=== PATIENT | female | born 1950 | race Caucasian/White ===

== ENCOUNTER 2025-11-21 15:28 | Emergency (ER) | payer MEDICARE, SELFPAY ==
--- OUTSIDE RECORDS SUMMARY | 2025-11-10 05:50 | XMS_ITS | Continuity of Care Document ---
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 Trimmer Name Role Phone Naheed Thompson DO Primary Care Provider [phone] Phill Nuñez PA-C Emergency Provider [phone] Trae Vela MD Admit Provider Karthikeyan Langley DO Other Provider Nakul Marin MD Other Provider Kwabena Osei DO Other Provider Sae Jaramillo MD Attending Provider Naheed Thompson DO Attending Provider Self, Referral Attending Provider Unavailable Ariadna Gonzalez MD Attending Provider Naheed Zaman DO Referring Provider Care Teams Patient Care Team Team Status: Active Member Role/Relationship Status Dates Naheed Thompson DO Primary Care Provider Active Visit Care Team Team Status: Inactive Member Role/Relationship Status Dates Naheed Thompson DO Primary Care Provider Active Start: August 14, 2025 End: August 17Antonio Tate ProviderActiveStart: August 14, 2025 End: August 17, 2025MushtGissell Ramirez ProviderActiveStart: August 14, 2025 End: August 17, 2025Karthikeyan Langley DOOther ProviderActiveStart: August 14, 2025 End: August 17jodi Marin MDOther ProviderActiveStart: August 14, 2025 End: August 17, 2025Kwabena Osei DOOther ProviderActiveStart: August 14, 2025 End: August 17, 2025Firchuyita Jaramillo , MDAttending ProviderActiveStart: August 14, 2025 End: August 17, 2025 Visit Care Team Team Status: Inactive Member Role/Relationship Status Dates Naheed E Schwerer , DO Primary Care Provider Active Start: August 23, 2025 End: August 23, 2025Kaitlin E Schwerer , DOAttending ProviderActiveStart: August 23, 2025 End: August 23, 2025 Visit Care Team Team Status: Inactive Member Role/Relationship Status Dates Naheed E Schwerer , DO Primary Care Provider Active Start: August 30, 2025 End: August 30, 2025Kaitlin E Schwerer , DOAttending ProviderActiveStart: August 30, 2025 End: August 30, 2025 Visit Care Team Team Status: Inactive Member Role/Relationship Status Dates Naheed E Schwerer , DO Primary Care Provider Active Start: September 16, 2025 End: September 16, 2025Kaitlin E Schwerer , DOAttending ProviderActiveStart: September 16, 2025 End: September 16, 2025 Visit Care Team Team Status: Inactive Member Role/Relationship Status Dates Naheed E Schwerer , DO Primary Care Provider Active Start: September 16, 2025 End: September 16, 2025Referral SelfAttending ProviderActiveStart: September 16, 2025 End: September 16, 2025 Visit Care Team Team Status: Inactive Member Role/Relationship Status Dates Naheed E Schwerer , DO Primary Care Provider Active Start: September 29, 2025 End: September 29, 2025Kaitlin E Schwerer , DOAttending ProviderActiveStart: September 29, 2025 End: September 29, 2025 Visit Care Team Team Status: Inactive Member Role/Relationship Status Dates Naheed E Schwerer , DO Primary Care Provider Active Start: September 30, 2025 End: September 30, 2025Kaitlin E Schwerer , DOAttending ProviderActiveStart: September 30, 2025 End: September 30, 2025 Patient Care Team Team Status: Inactive Member Role/Relationship Status Dates Naheed Thompson DO Primary Care Provider Active Start: November 10, 2025 End: November 10, 2025d Grant Gonzalez MDAttending ProviderActiveStart: November 10, 2025 End: November 10, 2025 Visit Care Team Team Status: Active Member Role/Relationship Status Dates Naheed Thompson DO Primary Care Provider Active Start: November 10, 2025 Naheed Thompson - S , DOReferring ProviderActiveStart: November 10, 2025 Mhd Grant Gonzalez MDAttkatlyn ProviderActiveStart: November 10, 2025 Chief Complaint and Reason for Visit Chief Complaint Admit Date Abd Pain August 14, 2025 4:18pm 1 week f/u August 30, 2025 10 :28am Cough September 16, 2025 9 :11am Screening September 16, 2025 3 :21pm left sided pain September 29, 2025 9 :53am r10.32 September 30, 2025 2 :44pm Follow Up 6 Months November 10, 2025 9:50am Iron Deficiency Anemia November 10 9:51am Reason for Visit Admit Date COPD (chronic obstructive pulmonary dise ase) August 14, 2025 4:18pm Generalized anxiety disorder July 262024 4:18pm History of radiation exposure August 14, 2025 4:18pm Myocardial infarction August 14 4:18pm Obstructive sleep apnea August 14, 2025 4:18pm Complete obstruction of small intestine August 14, 2025 4:18pm Leukocytosis August 14, 2025 4:18pm Small bowel obstruction August 14, 2025 4:18pm Cough August 23, 2025 9:48am Diabetes August 23, 2025 9:48am Small bowel obstruction August 23, 2025 9:48am Cough August 30, 2025 10 :28am Diarrhea August 30, 2025 10 :28am Insomnia August 30, 2025 10 :28am Bronchitis September 16, 2025 9 :11am Bronchitis September 29, 2025 9 :53am Left lower quadrant abdominal pain Novem 2024 9:53am Duodenitis November 10, 2025 9:50am Iron deficiency anemia November 10 9:50am Rectal cancer November 10, 2025 9:50am Leukocytosis November 10, 2025 9:50am Iron deficiency anemia November 10 9:51am Rectal cancer November 10, 2025 9:51am GERD (gastroesophageal reflux disease) D ecember 2024 9:51am Leukocytosis November 10, 2025 9:51am Reason for Referral Type Reason(s) Provider Provider Contact Information Marcio baires Address Start Date Nakul Coulter MDWork Phone: [phone] [facility] [address] [facility] [address]Ov[place] have been scheduled for a follow up appointment for the following date and time, please call to reschedule if needed.Alden Cerda Phone: [phone] [facility] [address] Health Concerns Concerns Start Date A [facility] screening has identified you as FRAIL or AT RISK FOR FRAILTY. This puts you at a higher risk for infection, illness, falls, and other injuries. Here are four ways to help you reduce your risk of frailty: 1. IDENTIFY EARLY SIGNS OF FRAILTY ??? Discuss contributing factors and concerns with your doctor 2. BE ACTIVE ??? Walking and light strengthening exercises will help reduce weakness 3. EAT WELL ??? Aim for three healthy meals a day that are high in protein 4. THINK POSITIVE ??? Keep your mind active by being sociable and continuing to learn References: Stay Strong: Four Ways to Beat the Frailty Risk [email or web address]-bqheig-jkzf- tnet-mi-isow-the-fra ilty-risk Allergies, Adverse Reactions, Alerts Allergen Type Severity Reaction Last Updated Verified Status moxifloxacin Allergy Unknown Anaphylaxis November 10, 2025 10: 08am Yes Active Social History Smoking Status Status Start Date End Date Date of Observa tion Smokes tobacco daily (finding) August 15, 2025 9:13am Observation Status Observation Response Date of Response Legal Sex Female (finding) Sex Assigned At BirthFemaleMay 1949 Family History Relationship Condition Age at Onset Recorded Date/T giovanna mother Malignant neoplasm of cervix Unknown Malignant neoplasmUnknownHistory of malignant neoplasm of cervixUnknownDeceased UnknownfatherAccidental in industrial placeUnknownDeceasedUnknownsister Malignant neoplasm of pancreasUnknownbrotherCardiovascular diseaseUnknown Diabetes mellitusUnknownsisterMalignant neoplasm of cervixUnknown Problems Active Problems Problem Diagnosis/Recorded Date Onset Date Status C omments Right lower quadrant pain July 12, 2024 12:38pm Unknow n Active Left lower quadrant abdominal painNovember 2024 10:31amUnknownActive Medicare annual wellness visit, subsequentcember 2023 1:36pmUnknown ActiveMild major depressionMarch 2023 10:47amUnknownActiveInsomniaJanuary 2017 8:52amUnknownActiveInsomniaMarch 2023 10:47amUnknownActive Obstructive sleep apneaMay 2022 11:58amUnknownActiveGeneralized anxiety disorderMarch 2023 10:47amUnknownActiveEssential tremorDecember 2023 11:19amUnknownActiveSacroiliitisSeptember 2023 8:59amUnknownActiveOSA on CPAPMay 2024 7:08amUnknownActiveACPAP 6-16cm R2NIczrd spondylosis with radiculopathy, lumbar regionMarch 2023 9:54amUnknownActiveRectal cancer October 20, 2023 12:58pmUnknownActiveDiabetesJanuary 2017 8:53amUnknown ActiveChronic painMarch 2023 9:55amUnknownActiveCoughSeptember 2024 9:48amUnknownActiveDiarrheaOctober 2017 5:17pmUnknownActiveHyperglycemia December 03, 2017 8:22amUnknownActiveHistory of open reduction and internal fixation (ORIF) procedureFebruary 2020 1:29pmUnknownActiveleft wristRight leg painSeptember 2023 7:47amUnknownActiveMyocardial infarctionApril 2022 9:12amUnknownActiveOsteopeniaApril 2020 12:27pmUnknownActiveEmphysema lungMay 2022 11:58amUnknownActiveRestless legsSeptember 2023 8:59am UnknownActiveSkin lesionMay 2024 8:09amUnknownActiveDegenerative disc disease, lumbarSeptember 2023 8:59amUnknownActiveWeight lossAugust 2023 12:37pmUnknownActiveEx-smokerApril 2022 9:12amUnknownActiveAnal cancerSeptember 2023 8:59amUnknownActiveIron deficiency anemiaAugust 2022 10:31amUnknownActiveLeft knee painSeptember 2023 7:47amUnknownActive PAF (paroxysmal atrial fibrillation)March 29, 2023 1:02pmUnknownActiveCOPD (chronic obstructive pulmonary disease)October 18, 2019 1:58pmUnknownActive BronchiectasisMay 2022 12:59pmUnknownActiveCOPD exacerbationDecember 2023 1:55pmUnknownActiveThoracic back painMarch 2023 9:55amUnknownActive GERD (gastroesophageal reflux disease)October 18, 2019 1:58pmUnknownActive History of radiation exposureSeptember 2024 8:16amUnknownActive Sacroiliitis, not elsewhere classifiedMarch 2023 8:20amUnknownActive BronchitisOctober 2024 9:05amUnknownActiveHTN (hypertension)December 02, 2017 12:38pmUnknownActiveArthritis of lumbosacral spineSeptember 2023 8:59amUnknownActiveDuodenitisFebruary 2023 11:37amUnknownActive Inactive/Resolved Problems Problem Diagnosis/Recorded Date Onset Date Status C omments Complete obstruction of small intestine August 14, 2025 2:53pm Unknown Resolved LeukocytosisJune 2024 9:11amUnknownResolvedSmall bowel obstruction August 15, 2025 8:16amUnknownResolvedPseudomonas aeruginosa infection October 30, 2021 11:56amUnknownResolved Medications Medication Status Dose Units Route Directions Qty Days Refills S tart Date Stop Date End Date Reason(s) Instructions Adherence Metformin 500 mg tablet Discontinued 0 .ROUTE.XIJDOWB016Splipqxf 2023 9:27amMarch 2023 10:44amTAKE 1 TABLET BY MOUTH DAILYTrazodone 100 mg rolwsqAhydbmpzkddc592RCJCLmvnq at ursmxwf585Ldlsk 2023 1:22pmAugust 2023 8:34amMontelukast 10 mg kuysugTtiunqnxkgjp26 VSTFBtalb367Jtjve 2023 10:52amSeptember 2023 7:31amBuspirone 5 mg kaqqrbKnapgkvjmnkr6LEHALbxsz irlih683MujApril 15, 2024 1:11pmNovember 2023 8:32amGabapentin 300 mg cznkiqlSxwydrcdampu186PYAKAkjrx times clurx8035Qfj 2023 7:25amOctober 2023 12:09pmOmeprazole 20 mg capsule,delayed release(DR/EC)Huvxlsnzcsls57OFBYNciuz cegpp6415FkcApril 20, 2024 7:25amApril 2024 8:16amGERDSertraline 100 mg tabletDiscontinued0.ROUTE.YJIXJQI652Pvrl 2023 10:10amNovember 2023 8:14amTAKE 1 TABLET BY MOUTH ONCE DAILYMetformin 500 mg tabletDiscontinued0.ROUTE.XOUCESH423Rbpi 2023 12:47pmNovember 2023 7:51amTAKE 1 TABLET BY MOUTH DAILYTrazodone 100 mg vuionwDnkmrpkxkusp046XV PODaily at bgmmiqp917Plsmdx 2023 8:34amJanuary 2024 10:28am Montelukast 10 mg oerbqpGasnwmnwrlma56OWHVGitix916Nmkigfaqx 2023 7:31am January 10, 2025 8:39amZolpidem (Ambien) 10 mg kzfvfwRrsxxbzfynup06ENTR Xwrpzup66194Djxftac 2023 9:05amDecember 2023 1:56pmInsomnia Insomnia, unspecifiedGabapentin 300 mg capsuleDiscontinued0.ROUTE.SLRDZLJ1110 September 23, 2024 12:09pmNovember 2023 8:14amTAKE 2 CAPSULES BY MOUTH 3 TIMES DAILYRopinirole 1 mg tabletDiscontinued0.ROUTE.UHTFXWS391Edwnoyqa2023 7:29amNovember 2023 8:14amTAKE 1 TABLET BY MOUTH DAILY 1 TO 3 HOURS BEFORE BEDTIMETrazodone 100 mg eahmeyIhidlekqsbhl875DXNVKkdxp at tftdybc908 December 07, 2024 10:27amJune 2024 10:11amMontelukast 10 mg tablet Vwyypxnguhyz52KEFLUyqla097Itutgisr 2024 8:39amJune 2024 8:17am Zolpidem (Ambien) 10 mg hvcglrSfxzvhfejpal90UHNBXtfoext70144Bompv 2024 3:06pmJuly 2024 1:23pmInsomnia Insomnia, unspecifiedPrimidone 50 mg ygqrwmOjuejhahunfn24ERKHNgglo at jgqsmyb190 February 25, 2025 12:58pmJuly 2024 9:56amOmeprazole 20 mg capsule,delayed release(DR/EC)Ykdavp44OUAIGlamp wploi6183Ultmz 2024 8:15amGERDUnknown Sertraline 100 mg tabletDiscontinued0.ROUTE.AQDGSMP261Sqhik 2024 8:48pm March 22, 2025 7:45amTAKE 1 TABLET BY MOUTH ONCE DAILYTrazodone 100 mg tablet Uvmbxv446PRKVXwgzh at lcemobo735Ibyc2024 10:11amUnknownZolpidem (Ambien) 10 mg brklnzXipqxkxauzdm05EQGONwulqyq65441Axzs 2024 1:23pmOctober 2024 10:05amInsomnia Insomnia, unspecifiedPrimidone 50 mg mcjhxjOiqaotfqcbxr05AJMEJhwnm at onvdyjz698 June 16, 2025 9:56amNove2024 11:00amRopinirole 1 mg tabletActive0 .ROUTE.SFWSQOG760Xcofvgnos 2024 6:30amTAKE 1 TABLET BY MOUTH DAILY 1 TO 3 HOURS BEFORE BEDTIMEUnknownAlbuterol Sulfate 1.25 mg/3 mL Solution For NebulizationDiscontinued1.53OTWDGCINBRIXV6U as needed for Shortness Of Breath Or WheezingNovuary 2017 12:00amN2018 2:16pmMeloxicam 15 mg QmccgaPfjzqdirinpk84FGHUGhsmgLnpfdgh 9th, 2018 12:002018 3:27pm Nitroglycerin (Nitrostat) 0.4 mg Tablet, SublingualDiscontinued0.4MGSUBLINGUAL Q5M as needed for Chest PainNovuary 2017 12:002018 3:26pm Omeprazole 20 mg Capsule,Delayed Release(Dr/Ec)Vunqysbbbtwj43VTFOSwkgrXhaauvs 9th, 2018 12:00amJanuary 2019 3:10pmZolpidem (Ambien) 10 mg Tablet Vuqittkeccap11SDFYDeygmzmIwfnqkx 2017 12:00January 2019 12:18pm Albuterol Sulfate (Proair Hfa) 90 mcg/actuation Hfa Aerosol QhtkvydOzypao9WEM VJVQGRPBPJN7S as needed for WheezingNovuary 2017 12:00amComplies with drug therapyApple Cider Vinegar 500 mg ApfdauSnuwaxfqbbxi481YTHRDmqytDiakfnv 9th, 2018 12:00ept2017 2:50pmTiotropium Savoy (Spiriva With Handihaler) 18 mcg Capsule, W/Inhalation RllavyHppdgiyplpac86ZOLOXGKIBTQOURkslu Maddie 2017 12:00amMarc 2020 4:07pmcopdPotassium Gluconate 595 mg (99 mg) FfvnzmDmegdlgxcybh1HBVVUQqqdq dailyDecember 02, 2017 12:00amSept2017 2:52pmMometasone-Formoterol (Dulera) 200-5 mcg/actuation Hfa Aerosol ZabiumjXtdtbhqojtwh7PDHUWFKAPRRAQZKoxseMjcqlul 9th, 2018 12:00amMarch 2020 4:06pmCOPDMagnesium Citrate 100 mg JpprefTjdiqwuetxeh155HANUYolbrIvyluqr 2017 12:amSeptember 2017 2:52pmCalcium Nns-Pau-U8-Zn-Pulp Grinder Feeder-Sesar (Calcium Citrate Plus) 662-20-680-3.75 nx-fj-ddhb-mg NenyqeTozkregnfafx1QCBUMFdwwv daily December 02, 2017 12:00amSeptember 2017 2:51pmPrednisone 10 mg tablet Ywdytmkfkxdf35MCPZIb Qegeyewz01266Myoqlzs 2017 12:amJanuary 2017 12:January 2017 12:03amadminister with food or milk. Take one tablet twice a day for 4 days then one tablet daily for 4 days then half a tablet daily.Amoxicillin-Pot Clavulanate 875-125 mg ggkhghVkgusnmyilwg1OIHUZJvlfh daily 1470Novuary 2017 12:00amJanuary 2017 12:amJanuary 2017 12:05amMetformin 500 mg gwaxvgFcgapoluvgtu202OQBOEucvs uzexj75096Lkvudbo 2017 12:00amApril 2017 11:00pmApril 2017 11:01pmTramadol 50 mg rnfzngBmfqixtaiwzq45LEVHW3S as needed for jmip8131Deumozz 2017 12:00am December 09, 2017 12:amJanuary 2017 12:03amGabapentin 300 mg capsule Uguukfrhaead110QFTZZbihx times dailyJuly 2017 11:00pmJanuary 2019 3:10pmCarisoprodol (Soma) 350 mg GodvflCpeypehrtorq654MJWOShttw times daily as needed for PainOctober 18, 2019 12:January 2019 1:31pmCitalopram (Celexa) 20 mg DoagbnOaserfshdfkg54GOCXZpfnfSvmqhpjp 25th, 2019 12:00amJanuary 2019 3:10pmDicyclomine 10 mg GlykpbsKxwsnhecoopr82HDNBNtpjn times daily October 18, 2019 12:amJanuary 2019 1:31pmEscitalopram Oxalate 20 mg CfhrrjZcbmjcqruick04CYBRNgokwCottsidp 25th, 2019 12:00amJan2019 3:10pmTizanidine 6 mg GlyinlxDwmcobqgssxv3TTEUWlwizcwNjelnimc 25th, 2019 12:00am December 17, 2019 1:28pmDiclofenac Sodium (Voltaren) 1 % GelDiscontinued October 18, 2019 12:00Jan2019 3:10pmMeclizine 25 mg tablet Mmuhjphogadk53PYQG4-8 TIMES PER DAY as needed for zuiinaqmb064Tuefxuha 25th, 2019 12:00amNsierra [place] 2018 12:00[facility] 2018 12:04amAmlodipine 5 mg cgrzpkMdgphfomceza4UULYVzndx [facility] 2020 1:45pmDecehonor[facility] 2020 5:46pmhtnAspirin 81 mg Tablet,Delayed Release (Dr/Ec)Nbmllfbuhpyy15IKIE [facility] 12:00[facility] 2022 11:41amOn Hold: Resume on 09/07/22. If no signs of bleedingDiclofenac Potassium 50 mg tablet Pynlrkpnmipy19AXFQPixke daily as needed for Painbruary 2020 1:37pm January 10, 2021 1:40pmAtorvastatin 40 mg fuuuuxKopkpahseaso46DECYEizxr [facility] 2020 12:00[facility] 2022 11:42amhypercholesterolemia Metformin 500 mg oaigonRertswgrjzdz275NYSBWpjgm at bedV[facility] 2020 12:00amApril 2020 9:07amdiabetesRopinirole 1 mg eoiznkRovbpyxfovqc0BYIB BedV[facility] 2020 12:00amNovehonorhealth [facility] 2023 7:29amleg crampsCitalopram 40 mg qcpmmdVewyvtrktclq39DHSXAmobn [facility] 2020 12:00amDecehonorhealth [facility] 2020 5:39pmdepressionMagnesium Oxide 400 mg (241.3 mg magnesium) tablet Yidgwzzmyqug527ODUOEmbjc at bedtimeUab [facility] 2020 12:00amJanuary 2023 12:23pmmuscle crampingGabapentin 300 mg tbhsmhbKidjduryxnlr122ULBUCukqy times dailyFebruary 2020 12:00amMarch 2023 9:58amneuropathyOmeprazole 20 mg capsule,delayed release(DR/EC)Hujecjvuqaoo31JQBPPrddi morningFebruary 2020 12:00amMay 2023 6:29amGERDDiclofenac Sodium 75 mg tablet,delayed release (DR/EC)Zyycwrxzwxjn80GGIOYxbvi dailyFebruary 2020 12:00amDecember 2020 5:40pmarthritis painHydrocodone-Acetaminophen 5-325 mg tablet Discontinued0.ROUTE.COMPLEX as needed for dhim1816Poaqgial 2020March 2020 4:06pmStatus post wrist surgery Other specified postprocedural states1 or 2 tabs PO Q4-6 hrs as neededOmeprazole 20 mg capsule,delayed release(DR/EC)Bovcgidzghut80UWUNNyzrm dailyMay 2023 6:27amMay 2023 7:25amGERDLidocaine (Lidocaine Pain Relief) 4 % Adhesive Patch,HqpnixtvnCcwhdhbhjtsf5ADBLDRWXMECHWkcak098Zjyhv 2020 11:00pmDecemb2020 5:41pmBenzocaine (Hurricaine) 20 % Aerosol,QqnczHhygbjqarwgx6RGEVPL MUCOUS MEMThree times daily as needed for Wtbduxahco427Uoiix 2020 11:00pm October 25, 2021 5:39pmSaccharomyces Boulardii (Florastor) 250 mg Capsule Eylyuditwgan154TCGXApkpl daily with vqyns332[place]ibon 2020 11:00pmDecember 2020 5:43pmGuaifenesin (Mucinex) 600 mg Tablet Extended Release 12hrDiscontinued 1200MGPOTwice uglvp494Tvmqm 2020 11:00pmOctober 2021 10:58amMetformin 500 mg UjllicYhgvzitmghvb941SJIDMxtww rdlzn967Jyhzs 2020 11:00pmMarch 2022 2:57pmHydrocodone-Acetaminophen 5-325 mg tabletDiscontinued1 - 2TABPOEvery 6 hours as needed for Mod to rhidnv9785Gnzgd ecember 2020 5:47pm Fracture of rib Fracture of one rib, unspecified side, initial encounter for closed fracture Prednisone 20 mg QctyhnRjqwsgpldhwf13AKIHCdn vaznggqd36Gzfnv 2020 11:00pm October 25, 2021 5:43pmprednisone 20mg po daily x4 days then 10mg po daily for 4 days then stopTrazodone 50 mg kmzrkwFgiqrnryezca522IUQIEhjeb at bedtimeOctober 2021 10:58amMarch 2023 5:50amGuaifenesin (Mucinex) 600 mg tablet extended release 63fdJegkhkcvvohv4988EXJRThjvg daily as needed for Congestion August 25, 2022 10:58amOctober 2021 2:16pmAzithromycin 250 mg Tablet Gqzhodjjhqhc426TGAXA28X9766Irzdfxb 2021 11:00pmMarch 2022 11:42am Oxycodone-Acetaminophen 5-325 mg GnstwpUtfdsxxjchve0WXNSHZ1H as needed for Pain 1070October 2021March 2022 11:43amShortness of breath Shortness of breathMetoprolol Tartrate 50 mg XpxzrcJjklrxmnevog18CCCTQjidv daily 02555Jidfkop 2021 11:00pmMay 2022 1:33pmGuaifenesin (Mucinex) 600 mg tablet extended release 14rtGappmohzcbxe789QBRHEwzsh zdaxm12703Vndawyb 2021 2:16pmMarch 2022 11:44amFerrous Sulfate (Slow Fe) 142 mg (45 mg iron) tablet extended bzxohdrCrghdhxrhwew348UVUMDcync 48 aafhy631Peijlbc 2021 11:00pmMarch 2022 11:43amHydrocodone-Acetaminophen 5-325 mg tablet DiscontinuedApril 2017 11:00pmJuly 2017 12:34pmTiotropium Savoy (Spiriva With Handihaler) 18 mcg capsule, w/inhalation soobvvMwwzbihqphnf907IKU INHALATIONDailyApril 2017 11:00pmJuly 2017 6:00amMometasone- Formoterol (Dulera) 200-5 mcg/actuation HFA aerosol inhalerDiscontinuedApril 2017 11:00pmJuly 2017 12:35pmMetformin 500 mg BndoziZnkblwzqbksm315 MGPOTwice dailyApril 2017 11:00pmJuly 2017 5:59amDiphenhydramine Hcl (Benadryl Allergy) 25 mg YlknxaTfrrberchxyc30WJRHQJIXI 4-6 HOURS as needed for ItchingApril 2017 11:pmOctober 18, 2019 3:27pmVarenicline Tartrate (Chantix) 1 mg EvonogSfzowtcxwvnk3NEXSHywdu dailySeptember 2017 11:00pm October 18, 2019 3:26pmMetformin 1,000 mg xmdvhjOdsfdpvchsix5258TSFFRruhd mftjg614Xwyeqkw 2017 11:pmOctober 18, 2019 3:26pmAmoxicillin-Pot Clavulanate (Augmentin) 875-125 mg klppkhYdfwssmezofd9MSNJHQpbtm vbbew88Agewspq 2017 11:2018 3:26pmAzithromycin 500 mg tablet Gwizdpnqacrl175AFGHGjhev00Uubwxjp 2017 11:2018 3:26pm Meloxicam 15 mg LpwsihErzjcgtjdgxs19TEBCQpchuPrzyety 2019 12:002019 4:12pmRopinirole 5 mg HjnwwpFwnazyczeanz57NQUVHsjoc dailyNovuary 2019 12:2019 2:19pmRopinirole 1 mg tabletDiscontinued1 TABPODailyNovuary 2019 12:002019 3:11pmMeclizine 25 mg amgwdcNswsetwhmdeb5ZCKKAOwwxc times daily as needed for VertigoDecember 17, 2019 12:2019 3:12pmTizanidine 6 mg qwljwzyMqwrpgkjoeqz9UKNEC Twice dailyNovuary 2019 12:002019 3:09pm2 AM & 2 HS Ropinirole 1 mg ihoyydZmbamvybftie8WDYUALwssn dailyJanuary 2019 12:00am December 20, 2019 12:18pmTizanidine 6 mg yocsozpFdwjfmtiustj5XPQIVuoclbgZedpirx 25th, 2020 12:00amNovuary 2019 12:18pmAmlodipine 5 mg TabletDiscontinued5 OWSXAtuok04055Tuowurl 27th, 2020 12:00amFebruary 2020 1:35pmPropranolol 10 mg RsrtywHambelcqvwns01EZKLTucyp times fbrcy42320ZqjtcppDecember 20, 2019 12:00am January 10, 2021 1:38pmDivalproex 250 mg Tablet Extended Release 24 Hr Vviwzaznycrn100PMAIUwwop at kezsdtt66312Rbvjluf 2019 12:00February 2020 1:37pmZolpidem (Ambien) 10 mg YslloyNnwxbpauuobz55ABUSAadfuxy10Zqwexau 2019 12:17pmMarch 2023 10:44amInsomnia Insomnia, unspecifiedAspirin 81 mg tablet,ssdytxuwSjefmclirfcz59PPNWWltaz520 December 20, 2019 12:00amFebruary 2020 1:35pmTrazodone 50 mg tablet Ediduddhlmys34NMZPJqkeo at tcuebvl316Emebkbw 2019 12:00amOctober 2021 10:58amDiclofenac Potassium 50 mg kczktsNcqlqjrocrnm51YKXVLchjx daily as needed for vhfozifz024Gapzfzu 27th, 2020 12:00amFebruary 2020 1:37pm Ymyqjpmziy-Epyukpjfznoyy-Dujb (Fioricet) 50-300-40 mg ihvjbvkXuhhtfysqlto2DMVOK Q8H as needed for tbvpdnns631Kiuikhg 27th, 2020 12:00amFebruary 2020 1:35pmLamotrigine 25 mg SzfokhRoamjkuryyeq94LKJBCwdliDvkynwhk 1st, 2020 12:00am January 10, 2021 1:38pmHydrocodone-Acetaminophen ([place]) 5-325 mg tablet Ssfmhjpmwgdw7FYWJBCOQFJ 4-6 HOURS as needed for wrist izhrdaow9696Iatdtuyl 2019February 2020 1:37pmOxycodone-Acetaminophen 5-325 mg tablet Piedecqacqcs3EAKZUC9V as needed for PainDecember 2020 12:00amOctober 2021 10:57amTiotropium [place]oy (Spiriva Respimat) 2.5 mcg/actuation mist Npmnqsrmkdtz9ENRSTFDVPVWYOUYfbyeOovbpcmt 2nd, 2021 12:00amJune 2024 8:03am Cefepime 2 gram Recon CernEopjojucgbbu0DENNC0W1952Khmieykz 10th, 2021 12:00am August 25, 2022 10:56amMethylprednisolone 4 mg BqzguvOxxdywbwghdi5JWIMNiedr hrevfns25ZwzqauxnNovember 02, 2021 12:00amOctober 2021 10:98ss1mb daily for 3 days then 4mg daily for 3 daysNystatin 100,000 unit/mL SuspensionDiscontinued 110076KQIQAQJzhp times fdvom8673IuqhtkdzNovember 02, 2021 12:00amOctober 2021 10:57amPrednisone 20 mg vbckpnEldvaaqwitxt24GKRXSzbcsMwvef 2022 11:00pm February 28, 2023 12:07pmApixaban (Eliquis) 5 mg dbbejtAgkzvtenooxb2RSPQIsfmo dailyMarch 2022 11:00pmAugust 2022 10:09amMetformin 500 mg tablet Dkudqoagjphp215LPUHOwifdksOhqiq 2022 2:56pmApril 2022 12:04pm Prednisone 10 mg nrqpktHorxiiqsrbxw82GVTYKfnty882Vklcu 2022 11:00pmApril 2022 3:10amTake 4 tablets daily x3 days, 2 tablets daily x3 days, 1 tablet daily x7 days then stopGuaifenesin (Mucinex) 600 mg Tablet Extended Release 12hr Zsunttgofbmb3736ENFVKswxe mcdzm90877Cphko 2022 11:00pmApril 2022 3:10amMetformin 500 mg liznrzHnzotmghnxbt7326NYIKYtooz vvveq652862Kqnfh 2022 12:04pmFebruary 2023 9:27amFluticasone Propion-Salmeterol (Advair Diskus) 250-50 mcg/dose blister with fdckomYbcjxoxfontg5SQWANCAMVTNYVErcit daily 600April 2022 11:00pmAugust 2022 10:09amMetoprolol Succinate 50 mg Tablet Extended Release 24 TmMdahwjaqybrp59TXMILdqan opjsnby998Ahd 2022 11:00pmAugust 2022 10:09amGuaifenesin (Mucinex) 600 mg Tablet Extended Release 03peJpiimlfujgrb027EZURDdhmj nvcdx888Ika 2022 11:00pmJanuary 2023 12:29pmPrednisone 20 mg IbdvdwEtcnibawoghs07FEGKBvmnw Taper: Start: March 28, 2023 12:55pm End: March 31, 2023 12:54pm Frequency: DAILY Days: 1 Hours: 0 Dose: 40 Start: March 31, 2023 12:55pm End: April 03, 2023 12:54pm Frequency: DAILY Days: 3 Hours: 0 Dose: 20 Start: April 03, 2023 12:55pm End: April 10, 2023 12:54pm Frequency: DAILY Days: 7 Hours: 0 Dose: 22289Zpi 2022 11:00pmNovember 2022 11:16amPlease contact the information source for Taper Schedule details.Aspirin 81 mg tablet,chewable Suttnf45PSSRCmmre069Afi 2022 11:00pmComplies with drug therapyCetirizine 10 mg tfgfriRsochxgkaydc05YWOYQziqlHwdbpc 2022 11:00pmNovember 2023 7:53amColestipol 1 gram awhxreKxtsvmgxdyfc1PQEERg DirectedAugust 2022 11:00pmJanuary 2023 12:28pmMetoprolol Succinate 50 mg tablet extended release 24 riEquzhnvsrwpr032EWYNLgbbt eveningAugust 2022 10:09amNovember 2023 7:52amNitroglycerin 0.6 mg Tablet, SublingualActive0.6MGSUBLINGUAL OnceNov2022 12:00amas a single dose; administer 5-10 minutes before situation known to precipitate angina attackComplies with drug therapyMeloxicam 15 mg soedkaJlzysvjqizbv51WOYEAlaoeVummppz 2023 12:00amSeptember 2024 9:57amFexofenadine 180 mg mburdvFzwczdcubqko860KYTPFgnsaKgvwotb 2023 12:00amApril 2023 9:02amMontelukast 10 mg lxlczaZxzfhkhuxbih16UYSIHdcat Maddie 2023 12:00amApril 2023 10:52amSertraline (Zoloft) 50 mg WugunzWriufknlbobc47LPHLZxydlWbdmsvn 2023 12:00amMarch 2023 10:00am Potassium 20 mg Tablet,NpnsvweyTzosvr37LLYQIrpsgCmzrysz 2023 12:00amUnknown Magnesium Glycinate 100 mg GftppuWxpsri057HKUOKztbvDeiozbh 2023 12:00am UnknownSertraline (Zoloft) 50 mg dddflgLhuwchlqohyh506YQGXZrqcgOwjfo 2023 9:59amJune 2023 11:43amSodium Chloride 3 % solution for nebulization DiscontinuedMLINHCLEARWATER VALLEY HOSPITALTIONUniversity [facility]als [facility] 2023 11:00pmSept2024 1:06pm FreeTextSi ml Inhalation Twice a day; Note: Source Status: Taking; Provider: Beto HeidiCpap (Continuous Positive Airway Pressure) unitActive0.RouteApril 2023 11:00pmAs directed DME Medical Servce Comp.Prednisone 20 mg tablet Usoiolmhvlqo22ORMSejyth5689Yjb 2023 11:00pmJune 2023 11:22am Gabapentin 300 mg ouhbkokOwvmrsxargyh272ZYOWDwzni times dailyMay 2023 11:00pmMay 2023 7:25amAcetaminophen-Codeine 300-15 mg tabletDiscontinued1 TABPOEvery 8 hours as needed for xqwq066Kgwuapqmw 19th, 2024 11:00pmSept2023 9:09amLeft knee pain Pain of right lower extremity Pain in left knee Pain in right legTramadol 50 mg vdujifScqskniwnplm59MGMJVmddk 8 hours as needed for epxn548Alzmwkjtt 19th, 2024 11:00pmJune 2024 8:18amLeft knee pain Pain of right lower extremity Pain in left knee Pain in right legBuspirone 5 mg kzqeikWkkzdxzhdcux5ATNJKzcwg times dailyDecember 2023 12:00amApril 2024 10:57amZolpidem (Ambien) 10 mg tablet Tbaqeueqrtkd40JVSBRpcakri76042Dnmtuxgt 2023 1:56pmApril 2024 3:07pm Insomnia Insomnia, unspecifiedPrednisone 20 mg jyjrtlEtgyqbbhbfge45ZBJMiizur8484Ofmsiyga 30th, 2024 12:00amApril 2024 7:44amDoxycycline Hyclate 100 mg capsule Kgwwizigitqg370AVNWMthcd qzahm84018Qbqcrmlj2023 12:00amApril 2024 7:44amSertraline 100 mg cyvdtsUpyuhqnfovjv897ATOGKyenbLunfjxqw 16th, 2024 11:08amApril 2024 8:48pmBuspirone 10 mg hegnbjQrsxdduyhsjz91ZNTKCneps times wjgbo316Mjgkcukv 2023 11:16amDecember 2023 1:28pmPrimidone 50 mg rhhofjYkeuvuurvhtm86OPRVRriwm at lbdugkm879Natjsczj 16th, 2024 12:00amApril 2024 12:58pmSertraline 100 mg jqhvmbSgybsfayrjlq057XPFGEjhphMrsdh 2024 7:44amApril 2024 10:57amBuspirone 10 mg jvbnexFclkto60YSWRTajnu times eueez0921Xepyb 2024 10:56amUnknownSertraline 100 mg abokdhQadyoe242JTAL Ewwhs8081Iweuo 2024 10:30ptBryjateBtrxsxcbonn-Xicbyqlwj-Pivmxwza (Trelegy Ellipta) 100-62.5-25 mcg blister with lkdkxsZbsubqhnccjs9ERDAZLSZYDHQRZ06L52324 May 10, 2025 11:00pmOctober 2024 8:47amBenzonatate 100 mg capsule Zfabxjhbrzva887FIDQ2-6 TIMES PER DAY as needed for andcj443Pxhlwkamw , 2025 11:00pmOctober 2024 8:28amZolpidem (Ambien) 10 mg rrrkalQubbcn08UOVY Juqmxqu87368Wdtvmwm 7th, 2025 10:05amInsomnia Insomnia, unspecifiedUnknownAzithromycin 250 mg rzxdzvTqcfnsqecjof4ZP.wypsy425 August 29, 2025 11:pmSeptember 29, 2025 10:01amFor 250 mg dose pack: take 500 mg (day 1), then 250 mg for 4 days (days 2-5) orally DAILY; Cdvqovsalyxnhnn-Wciwltbiq-Ch (Bromfed Dm) 2-30-10 mg/5 mL hanmoRucopj7TYTNTKPCV 4-6 HOURS as needed for sinus jaujkqpm2063Etmflft2024 11:00pmUnknown Pzajipghmpm-Vtechkuvt-Rizhwbld (Trelegy Ellipta) 100-62.5-25 mcg blister with xkqhrhNesmqh9HLYRLTRBENGCSQ51B10840Bkssbjm 24th, 2025 8:46amUnknownPrednisone 20 mg qeqpccNdhyspppcpfh64BURUjehyg2661Nrgnkqe 23rd, 2025 11:00pmNov2024 10:01amAmoxicillin-Pot Clavulanate 875-125 mg wdpfxwNmlniunmnrlu8ZRGUBZgwiv ljvxu03388Osabkab2024 11:00pmOct2024 9:06amGuaifenesin (Mucinex) 600 mg tablet extended release 75ttPxhmao703AGMOUxvyn wulmz888TakrxugSeptember 15, 2025 11:00pmUnknownAzithromycin 250 mg jxbrnxVrbtujjkqwiv5LY. September 15, 2025 11:00pmSeptember 29, 2025 10:01amFor 250 mg dose pack: take 500 mg (day 1), then 250 mg for 4 days (days 2-5) orally DAILY;Amoxicillin-Pot Clavulanate 875-125 mg niqeewNvbbmm5DOZLZZeeey axqcy93334Tfrhbcxu2024 12:00amUnknownPrimidone 50 mg zghltnNwrmcg64SIYLFerob at mureruz396Psvgmmja2024 10:58amUnknownPromethazine-Codeine 6.25-10 mg/5 mL tmmsqFaclpt2MNKZFfwut 6 hours as needed for xsgvq065888Sehslqcx 2024 12:00amBronchitis Bronchitis, not specified as acute or chronicUnknownPantoprazole 40 mg tablet,delayed release (DR/EC)Qlcgcnlbemxf21DNUBFlpkq155Efhjtzgb 2023 12:00amJune 2023 11:42amGabapentin 100 mg oigjztnSjbztrdzlgvz363KKNEAcetk times dailyUniversity Hospitals St. [facility] 2023 11:00pmMay 2023 6:29amMetformin 500 mg tablet Iltxrnntcrhg799NYMDEgdhx969Mmgoe 2023 10:17amJuly 2023 12:47pm Buspirone 5 mg gccephNmklclgrqgyk3ZQLUZtcer gtwzd495Pxtfr 2023 11:00pmMay 2023 1:11pmZolpidem (Ambien) 10 mg ghypnjOixldbwnyuco26GNPATxxqvqt49426 February 12, 2024 10:39amJune 2023 11:54amInsomnia Insomnia, unspecifiedFerrous Sulfate 325 mg (65 mg iron) xcipqxPegoex482XVSP DailyAtrium Health [facility] 2023 11:00pmUnknownTrazodone 100 mg qhjfcjTxxiamzhgnay874YBVX Daily at bedtimeUniversity Hospitals St. [facility] [address] [facility] 2023 1:22pmFreeTextSig: TAKE 1 TABLET DAILY AT BEDTIME NEEDED; Note: Source Status: Taking; Refills: 3; Qty: 90 Tablet; Provider: Donna Farfan ( )Sertraline (Zoloft) 50 mg wvazdaJqypzrsapmyv46FOWQKsrijLgbj 2023 11:42amJune 2023 11:54amZolpidem (Ambien) 10 mg xursedOtsjzdexdnka62OTTRUgxiato61673Lifm 2023 11:53amOctober 2023 9:06amInsomnia Insomnia, unspecifiedSertraline 100 mg ztamptRgtvejgmmber066ZRNPAtbyk115Ompt 2023 11:53amJuly 2023 10:10amBudesonide 3 mg capsule,delayed,extend.dfpipqtTemrtv1DPBFscslgXokcgniy 2023 12:00amUnknown Atorvastatin 20 mg enczxoBrxjrrjuzczp21XUZVTjcrtFzdjqalw 2023 12:00am August 09, 2025 9:57amMetoprolol Succinate 100 mg tablet extended release 24 qjBdmusw171VGGNlktbnDbuomjxe 2023 12:00amUnknownFexofenadine 180 mg nkusdlTsdrklpeppxs298HHKROxjyfOodwxoge 2023 12:00amJune 2024 8:17am Loperamide 2 mg cstzqecIqwtfk2RINIQlfaxRbzhoxez 2023 12:00amUnknown Gabapentin 300 mg teobzagOqogpg226HZEHEzili times dailyK[facility]ucky [facility] 2023 8:12amUnknownRopinirole 1 mg knyueiRlzkbkcxdstw3DSDM.COMPLEXKentucky River Medical Center 2023 8:13amSept2024 6:30am1 mg orally; 1-3 hours before bedSertraline 100 mg gbxduqZlewuejajbsv311ZXVGMivacRybetgkw 2023 8:13amNoveer 2023 8:32amSertraline 100 mg ukcmrhFownzrugabma053UCPIZfxmgRdmktfvl 2023 8:23am November 08, 2024 11:08amBuspirone 5 mg ozheqeFtwktvlguzyc3HZXMIukkm rtwop937 October 08, 2024 8:32amDecehonorhealth [facility] 2023 11:18amTizanidine 4 mg capsule Obpgbeojkgfj0UTJQDjfu as needed for muscle nmpvmwtglr00681Qntz 10th, 2025 11:00pmSept2024 9:58amPrednisone 20 mg vowcwjBjpuptlilfbw95UMZYKagtn 1049Sept2024 11:00pmSept2024 1:05pmBronchopneumonia Bronchopneumonia, unspecified organismDoxycycline Hyclate 100 mg tablet Hpseajvabeau842QXGGVwkvv fndcn76999Buxyfxrfu 15th, 2025 11:00pmSept2024 1:04pmBronchopneumonia Bronchopneumonia, unspecified organismAlbuterol-Budesonide (Airsupra) 90-80 mcg/actuation HFA aerosol wcjaxlfOjbtnhecfajx7YBDHEEXFUZWJGGvuk times daily as needed for shortness of breath5.90September 2024 11:00pmOctober 2024 8:46amChronic obstructive pulmonary disease Bronchiectasis Emphysema, unspecified Bronchiectasis, uncomplicated Immunizations Immunization Event Date Not Given Reason Dose Number Kitchen Hand Lot Number Reason(s) Given Vaccine Information Statement (VIS) Detail Administration Location COVID-19 mRNA, Comirnaty (XOG) January 25 COVID-19 mRNA, Comirnaty (XOG)February 15OVID- mRNA, Comirnaty (XOG)September 08OVI Comirnaty (XOG) Tri-Sucrose March 06OVI mRNA Bivalent Booster (XOG)August 22, 2022Fluzone TIV High- Dose 65YR+August 26, [id number] [facility] Hospital CtrFluzone QIV High-Dose 65YR+August 26, [id number] County Hospital CtrInfluenza vaccine, quadrivalent, adjuvantedOctober neumococcal Conjugate Vaccine, 13 valentOctober 2016Pneumococcal Conjugate Vaccine, 20 valent November 04, 2022Trivalent Influenza VaccineOctober 2020Trivalent Influenza VaccineSeptember 2021 Medical Equipment Device Date Implanted Date Explanted Device Deta ils Orthopaedic bone wire December 28, 2019 JULITO: ()[id number] Issuing Agency: [employer] Device Id: [id number] bone wireFebruary 2019UDI: ()[id number] Issuing Agency: 1 Device Id: [id number] fixation plate, non-bioabsorbable, sterile December 28, 2019February 2020UDI: ()[id number] Issuing Agency: [employer] Device Id: [id number] bone screw, non-bioabsorbable, non-sterile December 28, 2019February 2020UDI: ()[id number] Issuing Agency: [facility] Device Id: [id number] bone screw, non-bioabsorbable, non-sterile December 28bruary 2020UDI: ()[id number] Issuing Agency: [facility] Device Id: [id number] bone screw, non-bioabsorbable, non-sterile December 28, 2019February 2020UDI: ()[id number] Issuing Agency: [facility] Device Id: [id number] bone screw, non-bioabsorbable, non-sterile December 28, bruary 2020UDI: ()[id number] Issuing Agency: [facility] Device Id: [id number] bone screw, non-bioabsorbable, non-sterile December 28, bruary 2020UDI: ()[id number] Issuing Agency: [facility] Device Id: [id number] bone screw, non-bioabsorbable, non-sterile December 28, 2019February 2020UDI: ()[id number] Issuing Agency: [facility] Device Id: [id number] Procedures Procedure Date Performed Status CT abdomen pelvis w con August 14, 2025 12: 47pm completed XR chest 1V portable August 14, 2025 1:45pm completed XR abdomen 1V August 14, 2025 3:35pm comp leted XR abdomen min 2V August 15, 2025 8:10am co mpleted XR abdomen min 2V August 16, 2025 11:53am c ompleted Blood Culture August 14, 2025 completed Blood Culture August 14, 2025 completed MM screening mammo BI w/CAD September 16, 2025 2 :22pm completed CT abdomen pelvis w con September 30, 2025 2:51p m completed Relevant Diagnostic Tests and/or Laboratory Data Laboratory Results Test Collection Date/Time Result Date/Time Result Interpretation Reference Range Result Comment Performing Site Bedside Hemoglobin A1c August 23, 2025 9:26am Sep tember 2024 9:26am 5.9 % Corrected White Blood CountSeptember 2024 4:24amSeptember 2024 4:42am8.9 10*3/uL3.8-11.6FOhio[facility] [id number] [address] [place] [address] 59981Wyuimdoqs White Blood CountDecember 2024 10:48amDecember 2024 11:31am10.9 10*3/uL3.8-11.6FOhioHealth [facility] [id number] [address] [place] [address] 55081Ntjuvcyupqi WBC CountSeptember 2024 4:24amSeptember 2024 4:42am8.9 10*3/uL3.8-11.6FOhioHealth [facility] General [facility] [id number] [address] [place] [address] 91710Xkwwfyphqee WBC CountDecember 2024 10:48amDecember 2024 11:31am10.9 10*3/uL3.8-11.6FOhioHealth [facility] General [facility] [id number] [address] [place] [address] 73373Ujz Blood CountSeptember 2024 4:24amSeptember 2024 4:42am4.41 10*6/uL3.60-5.00[facility] [id number] [address] [place] [address] 82463Snr Blood CountDecember 2024 10:48amDecember 2024 11:31am4.92 10*6/uL3.60-5.00[facility] [id number] [address] [place] [address] 78671OleywckfjaNhickpsgc 2024 4:24amSeptember 2024 4:42am13.7 g/dL11.8-15.4FOhioHealth [facility] [id number] [address] [place] [address] 34421GpskogoigmMaulkbxd 2024 10:48amDecember 2024 11:31am15.1 g/dL11.8-15.4FOhioHealth [facility] [id number] [address] [place] [address] 94194HikceqjtugNysltepwi 2024 4:24amSeptember 2024 4:42am40.2 %34.0-46.4FOhioHealth [facility] [id number] [address] [facility] 21547VveepwwkeqYunyshmi 2024 10:48amDecember 2024 11:31am44.2 %34.0-46.4FOhioHealth [facility] [id number] [address] [facility] 66630Zkik Corpuscular VolumeSeptember 2024 4:24amSeptember 2024 4:42am91.2 gS27-108VpqtshzyzMagruder Memorial Hospital [facility]tr [id number] [address] [facility] 13595Szqg Corpuscular VolumeDecember 2024 10:48amDecember 2024 11:31am89.9 aX60-966JgrgsghlpMagruder Memorial Hospital Ctr [id number] [address] [place] [address] 25158Vzjn Corpuscular HemoglobinSeptember 2024 4:24amSeptember 2024 4:42am31.1 pg24.7-34.3FOhioHealth [facility] [id number] [address] [place] [address] 84249Ahdp Corpuscular HemoglobinDecember 2024 10:48amDecember 2024 11:31am30.7 pg24.7-34.3FOhioHealth [facility] [id number] [address] [place] [address] 34327Ccfv Corpuscular Hemoglobin ConcentSeptember 2024 4:24am August 17, 2025 4:42am34.1 g/dL32.0-35.0[facility] [id number] [address] [place] [address] 13140Tsub Corpuscular Hemoglobin ConcentDecember 2024 10:48am November 07, 2025 11:31am34.2 g/dL32.0-35.0[facility] [id number] [address] [place] [address] 27042Dpa Cell Distribution WidthSeptember 2024 4:24amSeptember 2024 4:42am14.2 %11.9-15.3FOhioHealth [facility] [id number] [address] [facility] 50104Smi Cell Distribution WidthDecember 2024 10:48amDecember 2024 11:31am14.4 %11.9-15.3FOhioHealth [facility] [id number] [address] [facility] 54077Htvfrsjp CountSeptember 2024 4:24amSeptember 2024 4:07po225 10*3/iU874-260XzpahgwyuMagruder Memorial Hospital [facility]tr [id number] [address] [facility] 13714Zscmwjat CountDecember 2024 10:48amDecember 2024 11:26sq676 10*3/qV956-894LpqzfeewqMagruder Memorial Hospital [facility] [id number] [address] [facility] 63513Wfii Platelet VolumeSeptember 2024 4:24amSeptember 2024 4:42am6.8 fL6.3-10.7FOhioHealth [facility] [id number] [address] [facility] 63495Okol Platelet VolumeDecember 2024 10:48amDecember 2024 11:31am7.6 fL6.3-10.7FOhioHealth [facility] [id number] [address] [place] [address] 01728Hxldoydy Distribution WidthSept2024 12:51pm August 14, 2025 1:04pm17.44 %0.00-20.00[facility] [id number] [address] [facility] 39648Mpttwpdrrlc (%) (Auto)August 17, 2025 4:24amSeptember 2024 4:42am81.0 %.[facility] [id number] [address] [facility] 32130Plfdvvoslhf (%) (Auto)November 07, 2025 10:48amDecember 2024 11:31am78.1 %.[facility] [id number] [address] [facility] 84755Fusyrjwutyp (%) (Auto)August 17, 2025 4:24amSeptember 2024 4:42am12.3 %.[facility] [id number] [address] [facility] 02253Dmptoxhwiot (%) (Auto)November 07, 2025 10:48amDecember 2024 11:31am15.0 %.[facility] [id number] [address] [facility] 41883Njotaiehw (%) (Auto)August 17, 2025 4:24amSept2024 4:42am3.8 %.[facility] [id number] [address] [facility] 06208Jyrcqogud (%) (Auto)November 07, 2025 10:48amDecemb2024 11:31am5.4 %.[facility] [id number] [address] [facility] 02267Josdqsnwqby (%) (Auto)August 17, 2025 4:24amSept2024 4:42am2.2 %.[facility] [id number] [address] [facility] 39624Sopbyozmazo (%) (Auto)November 07, 2025 10:48amDecemb2024 11:31am0.9 %.[facility] [id number] [address] [facility] 83003Kqvuodaux (%) (Auto)August 17, 2025 4:24amSept2024 4:42am0.7 %.[facility] [id number] [address] [facility] 35103Vjkeddcys (%) (Auto)November 07, 2025 10:48amDecemb2024 11:31am0.6 %.[facility] [id number] [address] [facility] 03727Kuzydhewh RBC Relative Count (auto)August 17, 2025 4:24am August 17, 2025 4:42am0.1 /100{WBC}0-0.5FOhioHealth [facility] [id number] [address] [facility] 11489Pwhkpoxda RBC Relative Count (auto)November 07, 2025 10:48am November 07, 2025 11:31am0.1 /100{WBC}0-0.5FOhioHealth [facility] [id number] [address] [place] [address] 99369Tdncarrrdhi # (Auto)August 17, 2025 4:24amSeptember 2024 4:42am7.2 10*3/uL1.8-7.7FOhioHealth [facility] [id number] [address] [facility] 21271Jdbozjnqgfg # (Auto)November 07, 2025 10:48amDece2024 11:31am8.5 10*3/uLAbove high normal1.8-7.7FOhioHealth [facility] [id number] [address] [facility] 78136Qwvbxxgvdgr # (Auto)August 17, 2025 4:24amSept2024 4:42am1.1 10*3/uL1.00-4.8[facility] [id number] [address] [facility] 85385Qqtmggjdccy # (Auto)November 07, 2025 10:48amDecember 2024 11:31am1.6 10*3/uL1.00-4.8[facility] [id number] [address] [place] [address] 98645Vjcjpcttt # (Auto)August 17, 2025 4:24amSeptember 2024 4:42am0.3 10*3/uL0.0-0.8[facility] [id number] [address] [place] [address] 19856Xjkxjjnpm # (Auto)November 07, 2025 10:48amDecemb2024 11:31am0.6 10*3/uL0.0-0.8[facility] [id number] [address] [facility] 71816Jjgffhyclar # (Auto)August 17, 2025 4:24amSeptember 2024 4:42am0.2 10*3/uL0.0-0.45[facility] [id number] [address] [facility] 45619Efkpmhdpvdq # (Auto)November 07, 2025 10:48amDecember 2024 11:31am0.1 10*3/uL0.0-0.45[facility] [id number] [address] [facility] 15123Peunivuwt # (Auto)August 17, 2025 4:24amSeptember 2024 4:42am0.1 10*3/uL0.0-0.2FOhioHealth [facility] [id number] [address] [facility] 92289Iccbsmexz # (Auto)November 07, 2025 10:48amDecember 2024 11:31am0.1 10*3/uL0.0-0.2FOhioHealth [facility] [id number] [address] [facility] 32307Aww Blood Cell MorphologyNovember 2022 8:37amNovember 2022 4:01pmN/[facility] [id number] [address] [facility] 88449OgrtivhojoujbNurcmmog 2022 8:37amNovember 2022 4:01pmSlightMagruder Memorial Hospital Ctr [id number] [address] [facility] 44668UjrxhmqtqujsZjxekbrt 2022 8:37amNovember 2022 4:01pmSlightMagruder Memorial Hospital [facility]tr [id number] [address] [facility] 80921JkvixsdvyopmKwwcaujf 2022 8:37amNovember 2022 4:01pmSlightMagruder Memorial Hospital [facility]tr [id number] [address] [facility] 41431Biwrckst EstimateNovember 2022 8:37amNovember 2022 4:01pmNormalNormalMagruder [facility] [id number] [address] [facility] 06173Tdkocipj Morphology CommentNovember 2022 8:37amNovember 2022 4:01pmNormalNormalMagruder Memorial [facility] [id number] [address] [facility] 91846Msuephf Reticulocyte CountSeptember 2022 7:57amSeptember 2022 2:39pm1.2 %0.5-1.5FOhioHealth [facility] [id number] [address] [facility] 26910Lulaagcv Reticulocyte CountSeptember 2022 7:57amSeptember 2022 2:39pm0.061 10*6/uL0.024-0.084[facility] [id number] [address] [facility] 76450Wwxkk ColorSeptember 2024 2:13pmSeptember 2024 2:36pmLight-yellowYellowMagruder Memorial Hospital Ctr [id number] [address] [facility] 92722Wlgxa AppearanceSeptember 2024 2:13pmSeptember 2024 2:36pmClearClearMagruder Memorial [facility] [id number] [address] [facility] 19973Khibb Specific GravitySeptember 2024 2:13pmSeptember 2024 2:36pm1.036Above high normal1.001-1.030[facility] [id number] [address] [facility] 97174Asfgo pHSeptember 2024 2:13pmSeptember 2024 2:36pm 6.05.0-9.0[facility] [id number] [address] [facility] 46470Jfwir Leukocyte EsteraseSeptember 2024 2:13pmSeptember 2024 2:36pmNegativeNegativeMagruder Memorial Hospital Ctr [id number] [address] [facility] 30124Yvtdo NitriteSeptember 2024 2:13pmSeptember 2024 2:36pmNegativeNegativeMagruder Memorial Hospital Ctr [id number] [address] [facility] 89725Oojrk ProteinSeptember 2024 2:13pmSeptember 2024 2:36pmNegative mg/dLNegativeMagruder Memorial Hospital Ctr [id number] [address] [facility] 03322Lypsl Glucose (UA)August 14, 2025 2:13pmSept2024 2:36pmNormal mg/dLNormalMagruder Memorial Hospital Ctr [id number] [address] [facility] 23077Qgvly KetonesSeptember 2024 2:13pmSept2024 2:36pmNegativeNegativeMagruder Memorial [facility] [id number] [address] [facility] 95015Jwein UrobilinogenSept2024 2:13pmSept2024 2:36pmNormal mg/dLNormGerman Hospital [facility]tr [id number] [address] [facility] 20648Lzijk BilirubinSept2024 2:13pmSept2024 2:36pmNegativeNegativeMagruder Memorial [facility] [id number] [address] [facility] 44814Vjoji Occult BloodSept2024 2:13pmSept2024 2:36pm2+Above high normalNegativeMagruder Memorial Hospital [facility]tr [id number] [address] [facility] 93200Bngid RBCSept2024 2:13pmSept2024 2:39pm 1-2 [HPF]0-4FOhioHealth [facility] [id number] [address] [facility] 94237Vnmue WBCSept2024 2:13pmSept2024 2:39pm 1-2 [HPF]0-4FOhioHealth [facility] [id number] [address] [facility] [address]Hgjix Squamous Epithelial CellsSept2024 2:13pm August 14, 2025 2:39pmN/AFOhioHealth [facility] [id number] [address] [facility] [address]Shqms BacteriaSeptember 2024 2:13pmSept2024 2:39pmNone seen [HPF]None SeenMagruder [facility] Hospital Ctr [id number] [address] [facility] [address]Xlsul Hyaline CastsSeptember 2024 2:13pmSept2024 2:39pmNone [LPF]0-8[facility] [id number] [address] [facility] [address]Ppaqd MucusSeptember 2024 2:13pmSeptember 2024 2:39pmRare [LPF][facility] [id number] [address] [facility] [address]Ymyjzir LevelSeptember 2024 4:24amSeptember 2024 5:24am96 mg/cD25-523GSD recommended reference rangeRandom Glucose Reference Range is dependent on time and content of last meal. Glucose of more than 200 mg/dL in a nonstressed, ambulatory subject supports the diagnosisof Diabetes Mellitus.[facility] [id number] [address] [facility] [address]Vskncvg LevelDecember 2024 10:48amDecember 2024 11:50am94 mg/eS08-828VVC recommended reference rangeRandom Glucose Reference Range is dependent on time and content of last meal. Glucose of more than 200 mg/dL in a nonstressed, ambulatory subject supports the diagnosisof Diabetes Mellitus.[facility] [id number] [address] [facility] [address]Habrf Urea NitrogenSeptember 2024 4:24amSeptember 2024 5:24am5 mg/dLBelow low normal-[facility] [id number] [address] [place] [address]Ilcgq Urea NitrogenDecember 2024 10:48amDecember 2024 11:50am15 mg/dL7-[facility] [id number] [address] [facility] 27015QirazakljjTblvbeaoc 2024 4:24amSeptember 2024 5:24am0.48 mg/dLBelow low normal0.60-1.20[facility] [id number] [address] [place] [address] 92002FjpmlhczzjBdewiuci 2024 10:48amDecember 2024 11:50am0.76 mg/dL0.60-1.20[facility] [id number] [address] [facility] 34754Pjyzpeoos GFR (CKD-EPI)August 17, 2025 4:24amSeptember 2024 5:24am> 60.0 mL/MinMagruder Memorial Hospital [facility]tr [id number] [address] [place] [address] 33855Jpeddomph GFR (CKD-EPI)November 07, 2025 10:48amDecember 2024 11:50am> 60.0 mL/MinMagr[facility] [id number] [address] [facility] 37418Coxwfe LevelSeptember 2024 4:24amSeptember 2024 5:06mj056 mmol/L006-116ZzptsijooMagruder Memorial Hospital [facility] [id number] [address] [place], [place] [address]Sodium LevelDecember 2024 10:48amDecember 2024 11:42gu587 mmol/H747-571BtuovkkzsMagruder Memorial Hospital [facility] [id number] [address] [facility] 87910Ceasjakdl LevelSeptember 2024 4:24amSeptember 2024 5:24am3.1 mmol/LBelow low normal3.5-5.1FOhio[facility] [id number] [address] [facility] 04801Ivdvbvvqx LevelDecember 2024 10:48amDecember 2024 11:50am3.8 mmol/L3.5-5.1FOhioHealth [facility] [id number] [address] [facility] 06457Hhfomxpa LevelSeptember 2024 4:24amSeptember 2024 5:60fk915 mmol/B83-748MbhmcnnkoMagruder Memorial [facility] [id number] [address] [facility] 82867Geyzpiuc LevelDecember 2024 10:48amDecember 2024 11:34oy126 mmol/C38-218TcuyvybhoMagruder Memorial Hospital [facility] [id number] [address] [place] [address] 81654Hvhxyr Dioxide LevelSeptember 2024 4:24amSeptember 2024 5:24am29.9 mmol/L21.0-31.0[facility] [id number] [address] [facility] 89644Vzrrkt Dioxide LevelDecember 2024 10:48amDecember 2024 11:50am30.0 mmol/L21.0-31.0[facility] [id number] [address] [facility] 00627Shfjm GapSeptember 2024 4:24amSeptember 2024 5:24am 10.2 mEq/L6.0-15.0[facility] [id number] [address] [facility] 46333Afnpu GapDecember 2024 10:48amDecember 2024 11:50am 10.8 mEq/L6.0-15.0[facility] [id number] [address] [facility] 15367Mssnxjp LevelSeptember 2024 4:24amSeptember 2024 5:24am8.2 mg/dLBelow low normal8.6-10.3FOhioHealth [facility] [id number] [address] [facility] 42963Fbvihpo LevelDecember 2024 10:48amDecember 2024 11:50am9.4 mg/dL8.6-10.3FOhioHealth [facility] [id number] [address] [facility] 69112Azqgjator LevelSeptember 2024 4:24amSeptember 2024 5:24am1.7 mg/dLBelow low normal1.9-2.7FOhioHealth [facility] [id number] [address] [facility] 73248Ftvcv ProteinSeptember 2024 4:24amSeptember 2024 5:24am5.5 g/dLBelow low normal6.4-8.9[facility] [id number] [address] [facility] 93311Pcneh ProteinDecember 2024 10:48amDecember 2024 11:50am7.2 g/dL6.4-8.9[facility] [id number] [address] [facility] 68844BjwuudiPrddafoeh 2024 4:24amSeptember 2024 5:24am 3.2 g/dLBelow low normal3.5-5.7FOhioHealth [facility] [id number] [address] [facility] 09995IsxmnnoBevwlenk 2024 10:48amDecember 2024 11:50am 4.3 g/dL3.5-5.7FOhioHealth [facility] [id number] [address] [facility] 80531NnhddmqlQutvfamfi 2024 4:24amSeptember 2024 5:24am 2.3 g/dLMagruder Memorial Hospital [facility] [id number] [address] [facility] 42852QfdoobfkTnoiflij 2024 10:48amDecember 2024 11:50am 2.9 g/dLMagruder Memorial Hospital [facility] [id number] [address] [facility] 08477Tpmcton/Globulin RatioSeptember 2024 4:24amSeptember 2024 5:24am1.4FOhioHealth [facility] [id number] [address] [facility] 94395Xvmdmfo/Globulin RatioDecember 2024 10:48amDecember 2024 11:50am1.5FOhioHealth Marion General [facility] [id number] [address] [facility] 19107Venbu BilirubinSeptember 2024 4:24amSeptember 2024 5:24am0.4 mg/dL0.3-1.0[facility] [id number] [address] [facility] 67987Tgigj BilirubinDecember 2024 10:48amDecember 2024 11:50am0.3 mg/dL0.3-1.0[facility] [id number] [address] [facility] 81212Mbnmpe BilirubinSeptember 2024 12:51pmSeptember 2024 1:23pm0.10 mg/dL0.03-0.18FOhioHealth [facility] [id number] [address] [facility] 24155Zyjhoquu BilirubinSeptember 2024 12:51pmSeptember 2024 1:23pm0.5 mg/dLMagruder Memorial [facility] [id number] [address] [facility] 94706Wjzrrwetr Amino Transf (AST/SGOT)August 17, 2025 4:24am August 17, 2025 5:24am14 U/C94-25HfhymuzrkMagruder Memorial Hospital [facility] [id number] [address] [facility] 53597Loartlxyg Amino Transf (AST/SGOT)November 07, 2025 10:48am November 07, 2025 11:50am20 U/G40-08CdgaoeohwMagruder Memorial Hospital Ctr [id number] [address] [place] [address] 57031Sjfihwy Aminotransferase (ALT/SGPT)August 17, 2025 4:24am August 17, 2025 5:24am9 U/L7-52[facility] [id number] [address] [place] [address] 39037Vbjllpk Aminotransferase (ALT/SGPT)November 07, 2025 10:48am November 07, 2025 11:50am14 U/L7-52[facility] [id number] [address] [place] [address] 15592Qwxezpmw PhosphataseSeptember 2024 4:24amSeptember 2024 5:24am26 U/LBelow low zhazmz61-256NjzuvmknlMagruder Memorial Hospital [facility] [id number] [address] [place] [address] 30801Zerlhdrb PhosphataseDecember 2024 10:48amDecember 2024 11:50am58 U/N58-291PzsatenusMagruder Memorial Hospital Ctr [id number] [address] [place] [address] 80635KxlbevQiyycjlkx 2024 12:51pmSeptember 2024 1:23pm 12.0 U/L11.0-82.0[facility] [id number] [address] [place] [address] 78428Gcpzun Acid LevelSeptember 2024 4:16amSeptember 2024 5:05am0.8 mmol/L0.5-1.9Lactic Acid reference range has been updated to 0.5 ??? 1.9 mmol/L and the critical range of 2.0 orgreater.[facility] [id number] [address] [facility] 05457Dcdi LevelDecember 2024 10:48amDecember 2024 11:50am98 ug/kU65-981UnjbftgpjMagruder Memorial Hospital [facility] [id number] [address] [place] [address] 61829Jsryn Iron Binding CapacityDecember 2024 10:48amDecember 2024 11:40vq450 ug/uW030-466OcxukuugoMagruder Memorial Hospital [facility] [id number] [address] [place] [address] 72059Lnjz SaturationDecember 2024 10:48amDecember 2024 11:50am27.5 %20-50[facility] [id number] [address] [place] [address] 92145DlpkpqgroidPgathsmv 2024 10:48amDecember 2024 11:24mb007 mg/nL990-777HfwtsxparMagruder Memorial Hospital [facility] [id number] [address] [place] [address] 42922ZwcxeziwHixuvmlc 2024 10:48amDecember 2024 12:09pm 92.8 ng/mL11.0-306.8[facility] [id number] [address] [place] [address] 61370Orpxjie B12 LevelDecember 2023 1:48pmDecember 2023 10:64ko899 pg/pL523-384WhawrdiqmMagruder Memorial Hospital Ctr [id number] [address] [place] [address] 01926PyceedVrmslrfu 2023 1:48pmDecember 2023 10:35pm9.5 ng/mL>5.9Folate reference range: >5.9 ng/mlThe WHO technical consultation on folate and vitamin q70icofbzwwogls has determined that folate concentrations lessthan 4 ng/ml are considered deficient.[facility] [id number] [address] [facility] 58349Vsogeokz Creatinine Clearance (ChemSeptember 2024 4:24am August 17, 2025 5:24am47.26[facility] [id number] [address] [facility] 41987Qelpstgx Creatinine Clearance (ChemDecember 2024 10:48am November 07, 2025 11:50am49.53[facility] [id number] [address] [place] [address] 52427Fkdlpqm CreatinineNov2024 3:36pmNov2024 3:59pm0.8 mg/dL0.6-1.3ER/ESD physician is notified/shown all ISTAT results.Critical values may be confirmed by laboratorytesting ifdeemed necessary by ER attending doctor.[facility] [id number] [address] [facility] 50846Feadqxt Estimated GFR (eGFR)September 30, 2025 3:36pmNov2024 3:59pm> 60.0[facility] [id number] [address] [place] [address] 26964 Microbiology Results Procedure Source Result Collection Date/Time Result Date/Time Result Comment Performing Site Blood Culture Blood, Right Antecubital NO GROWTH 5 DAYS August 14, 2025 4:11pm August 19, 2025 4:22pm [facility] [id number] [address] [place] [address] 14892Hnlzz CultureBlood, Left AntecubitalNO GROWTH 5 DAYSpt2024 4:17pmSept2024 4:22pmMagruder Memorial Hospital C[facility] [id number] [address] [place] [address] 14262 Diagnostic Imaging Reports Author Michael Shelton OhiohealthAuthoredSept2024 2:56pmReport Dictated Date/TimeDictated ByStatusRadiology ReportSept2024 2:56pm Lauren PierceompUniversity Hospitals [facility] [employer] [address] [place] [address] Scan Report Signed Patient: Hillary Gunn MR#: [id number] : 1950 Acct:[id number] Age/Sex: 75 / F ADM Date: 5 Loc: ER Room: Type: [facility] ER Attending Dr: Copies to: Phill Nuñez PA-C~ Ordering Provider: Phill Nuñez PA-C Date of Service: 08/14/25 CT/CT abdomen pelvis w con: Abdominal Pain CT ABDOMEN AND PELVIS WITH INTRAVENOUS CONTRAST: CLINICAL HISTORY: Upper abdominal/back pain, nausea and vomiting COMPARISON: 07/12/2024 TECHNIQUE: Spiral images were obtained through the abdomen and pelvis following the administration of intravenous contrast. This CT exam was performed using one or more following dose reduction techniques: Automated exposure control, adjustment of the mA and/or kV according to patient size, or use of iterative reconstruction technique. FINDINGS: Lung Bases: [Right middle lobe atelectasis and or scarring. Mild upper lobe atelectasis or Change. Cardiomegaly.] Organs:Liver, spleen, adrenals, kidneys, pancreas unremarkable.. Right renal calculus nonobstructed a right superior pole cyst.[Otherwise kidneys are unremarkable. GI: Mild gastric distention. Small hiatal hernia. Dilated fluid-filled loops of proximal small bowel. Terminal ileum appears mostly collapsed. There is evidence of a distal small bowel obstruction. Congested appearance of the small bowel mesentery within the lower abdomen. Transition point is not identified this time.[: Terminal ileum and colon are decompressed. Mild scattered colonic diverticulosis. Pelvis:[Bladder collapsed. Uterus absent. No adnexal mass.] Peritoneum/Retroperitoneum:Free fluid dependent pelvis. Moderate severe plaque involving the nonaneurysmal aorta. Moderate ostial plaque SMA.[ Abd wall/Bones:Degenerative changes both hips and of the lumbar spine.[ CT/CT abdomen pelvis w con IMPRESSION: Evidence of distal small bowel obstruction. Transition point is not identified. Impression dictated by: Michael Shelton M.D. 08/14/2025 3:03 PM Dictation Location: [place] [address] Transcribed By: [facility] 08/14/25 4409 Dictated By: Michael Shelton MD 08/14/25 1453 Signed By: <Electronically signed by Michael Shelton MD in OV> 08/14/25 1503 Author Michael Shelton [facility] HospitalhoredSept2024 3:17pmReport Dictated Date/TimeDictated ByStatusRadiology ReportSept2024 3:17pm Michael Shelton [facility] [employer] [address] [place] [address] XRay Report Signed Patient: Hillary Gunn MR#: [id number] : 1950 Acct:[id number] Age/Sex: 75 / F ADM Date: 5 Loc: ER Room: Type: [facility] ER Attending Dr: Copies to: Phill Nuñez PA-C~ Ordering Provider: Phill Nuñez PA-C Date of Service: 08/14/25 XR/XR chest 1V portable: Abdominal Pain SINGLE VIEW CHEST CLINICAL HISTORY: Chest congestion with cough, history of asthma COMPARISON: 03/27/2023 FINDINGS: Mildly enlarged cardiomediastinal. Evidence of interstitial pulmonary edema both lung bases greatest right. Minimal perihilar congestion. No large effusion or pneumothorax. XR/XR chest 1V portable IMPRESSION: PULMONARY EDEMA LIKELY MINIMAL PERIHILAR CONGESTION. Impression dictated by: Michael Shelton M.D. 08/14/2025 3:18 PM Dictation Location: [place] [address] Transcribed By: [facility] 08/14/25 1518 Dictated By: Michael Shelton MD 08/14/25 1517 Signed By: <Electronically signed by Michael Shelton MD in OV> 08/14/25 1518 Author Michael Shelton [facility] HospitalredSept2024 4:59pmReport Dictated Date/TimeDictated ByStatusRadiology ReportSept2024 4:59pm Al PierceUniversity [facility]als [facility] Main [address] [address] XRay Report Signed Patient: Hillary Gunn MR#: [id number] : 1950 Acct:[id number] Age/Sex: 75 / F ADM Date: 5 Loc: ER Room: Type: [facility] ER Attending Dr: Copies to: Phill Nuñez PA-C~ Ordering Provider: Phill Nuñez PA-C Date of Service: 08/14/25 XR/XR abdomen 1V: ng placement Single view abdomen INDICATION: Enteric tube placement COMPARISON: CT abdomen pelvis 08/14/2025 XR/XR abdomen 1V FINDINGS/IMPRESSION: Enteric tube tip and side-port left upper quadrant satis factory position. Impression dictated by: Michael Shelton M.D. 08/14/2025 4:59 PM Dictation Location: [place] [address] Transcribed By: [facility] 08/14/251658 Dictated By: Michael Shelton MD 08/14/251658 Signed By: <Electronically signed by Michael Shelton MD in OV> 08/14/25 165 Author Mac Kulkarni OhiohealthAuthoredSeptember 2024 4:53pmReport Dictated Date/TimeDictated ByStatusRadiology ReportSeptember 2024 4:53pm Mac Kulkarni Jr DOcompUniversity [facility]als [facility] [employer] [address] [place] [address] XRay Report Signed Patient: Hillary Gunn MR#: [id number] : 1950 Acct:[id number] Age/Sex: 75 / F ADM Date: 5 Loc: Room: 0W7455-1 Type: ADM IN Attending Dr: Alberto Mehta MD Copies to: MD Alberto Payton MD~ Ordering Provider: Nakul Marin MD Date of Service: 08/15/25 XR/XR abdomen min 2V: Follow-up bowel obstruction ABDOMEN 2 VIEWS: CLINICAL INFORMATION: Follow-up SBO COMPARISON: Abdomen 08/14/2025 FINDINGS: Enteric tube tip within the stomach. Paucity of bowel gas. Air is seen within the colon. No free air. Vascular calcifications. XR/XR abdomen min 2V IMPRESSION: NO PLAIN FILM EVIDENCE OF SMALL BOWEL OBSTRUCTION IS SEEN. Impression dictated by: Mac Kulkarni Jr. DSaadiaOSaadia 08/15/2025 4:54 PM Dictation Location: [place] [address] Transcribed By: [facility] 08/15/251653 Dictated By: Mac Kulkarni Jr, DO 08/15/251652 Signed By: <Electronically signed by Mac Kulkarni Jr, DO in OV> 08/15/251653 Author Giuliano Shore [facility]healthAuthoredSeptember 2024 3:49pmReport Dictated Date/TimeDictated ByStatusRadiology ReportSeptember 2024 3:49pm Giuliano Shore II [facility] [employer] [address] [place] [address] XRay Report Signed Patient: Hillary Gunn MR#: [id number] : 1950 Acct:[id number] Age/Sex: 75 / F ADM Date: 5 Loc: 4 Room: [address] [place] [address] Type: ADM IN Attending Dr: Alberto Mehta MD Copies to: MD Alberto Payton MD~ Ordering Provider: Nakul Marin MD Date of Service: 08/16/25 XR/XR abdomen min 2V: Follow bowel obstruction XR abdomen min 2V 08/16/2025 2:39 PM SIGNS AND SYMPTOMS: ^Follow bowel obstruction, abdominal pain PROTOCOL: Frontal radiographs of the abdomen and pelvis COMPARISON: 08/15/2025 FINDINGS: The enteric tube is in satisfactory position in the left upper quadrant. There is a nonobstructive bowel gas pattern. No radiographic evidence of free air. A moderate amount stool is noted in the colon. There is a 3 mm nonobstructing stone in the right renal collecting system. Atherosclerotic changes are noted in the abdominal aorta and within the pelvis. Degenerative changes are noted in the lumbar spine and hips. XR/XR abdomen min 2V IMPRESSION: Satisfactory positioning of the enteric tube. No bowel obstruction or obstructive uropathy. There is a 3 mm radiodense stone in the right renal collecting system. Impression dictated by: Giuliano Shore M.D. 08/16/2025 3:50 PM Dictation Location: [facility]- Transcribed By: [facility] 08/16/25 1550 Dictated By: Giuliano Shore II, MD 08/16/25 1549 Signed By: <Electronically signed by Giuliano Shore II, MD in OV> 08/16/25 1550 Author Giuliano Shore [facility]healthAuthoredOctcommonwealth regional specialty hospital 2024 4:20pmReportDictated Date/TimeDictated ByStatusRadiology ReportOctober 2024 4:20pmGiuliano Shore II [facility]omp[facility] [address] [place] [address] Mammography Report Signed Patient: Hillary Gunn MR#: [id number] : 1950 Acct:[id number] Age/Sex: 75 / F Adm Date: 5 Loc: IN Room: Type: [facility] Attending Dr: Referral Self Ordering Provider: SELF,REFERRAL Date of Service: 09/16/25 Procedure(s): MM screening mammo BI w/CAD Accession Number(s): ([id number]) MM/MM screening mammo BI w/CAD: SCREENING Copies to: Nhaeed Thompson, SELF,REFERRAL ~ CLINICAL DATA: Screening for malignancy. BILATERAL SCREENING MAMMOGRAMS - FULL FIELD DIGITAL WITH TOMOSYNTHESIS AND CAD Tomosynthesis craniocaudal and mediolateral oblique views of both breasts were obtained using low-dose digital technique. Comparison is made to prior studies from 08/31/2024, 05/05/2023, and 05/03/2022. This examination was reviewed with the aid of CAD. The breast parenchyma has been largely replaced by fat. Benign-appearing lymph nodes are noted along the chest wall. Benign-appearing calcifications are present bilaterally. There are no dominant masses, typically malignant calcifications or architectural distortion. There has been no significant interval change. MM/MM screening mammo BI w/CAD IMPRESSION: NO MAMMOGRAPHIC EVIDENCE OF MALIGNANCY. ROUTINE FOLLOW-UP IS RECOMMENDED IN ONE YEAR. RESULT CODE: 2 Benign Findings(s) DENSITY CODE: 1 (<25% glandular) The breasts are almost entirely fatty. FOLLOW UP: 1YR The false-negative rate of mammography is approximately 10-percent. Management of a palpable abnormality must be based on clinical grounds. Patient was entered into a reminder system with a target due date for the next mammogram. Impression dictated by: Giuliano Shore M.D. 09/16/2025 4:22 PM Dictation Location: [facility] Dictated By: Giuliano Shore II, MD 09/16/25 1620 Signed By: <Electronically signed by Giuliano Shore II, MD in OV> 09/16/25 1622 Author Shon Agustin OhiohealthAuthoredNovverde valley medical center 2024 4:58pmReportDictated Date/TimeDictated ByStatusRadiology ReportNov2024 4:58pmAugustina AnthonyOhioHealth [facility] [employer] [address] [place] [address] CT Scan Report Signed Patient: Hillary Gunn MR#: [id number] : 1950 Acct:[id number] Age/Sex: 75 / F ADM Date: 5 Loc: CT Room: Type: [facility] Attending Dr: Naheed Thompson DO Copies to: Naheed Thompson DO~ Ordering Provider: Naheed Thompson DO Date of Service: 09/30/25 CT/CT abdomen pelvis w con: R10.32 - Left lower quadrant pain CT Abdomen and Pelvis withcontrast TECHNIQUE: Axial imaging with 2-D reconstruction. The CT exam was performed using one or more the following dose reduction techniques: Automated exposure control, adjustment of the MA and/or Kv according to patient size, or use of the iterative reconstruction technique. COMPARISON: 08/14/2025 History: Left lower quadrant pain. LIMITATIONS: None LOWER THORAX Unremarkable LIVER: Unremarkable GALLBLADDER: No gallbladder abnormality identified. BILE DUCTS: No dilatation SPLEEN: Unremarkable PANCREAS: Unremarkable ADRENAL GLANDS: Unremarkable KIDNEYS:Small right renal cyst. No hydronephrosis. AORTA: No abdominal aortic aneurysm identified. 35 of atherosclerosis RETROPERITONEUM: No significant retroperitoneal abnormalities identified. MESENTERY:Unremarkable STOMACH:Unremarkable SMALL BOWEL: The small bowel loops are nondistended. APPENDIX: The appendix is normal. COLON: Descending and sigmoid diverticulosis. Mild inflammation at the junction of the descending sigmoid colon. No extraluminal air. No abscess. URINARY BLADDER: Urinary bladder is unremarkable. REPRODUCTIVE SYSTEM: Reproductive structures are unremarkable. PNEUMOPERITONEUM: None PERITONEAL FLUID:None BONY STRUCTURES: Unremarkable ABDOMINAL WALL: Unremarkable CT/CT abdomen pelvis w con IMPRESSION: Mild acute diverticulitis. Impression dictated by: Shon Agustin M.D. 09/30/2025 5:06 PM Dictation Location: [facility] Transcribed By: [facility] 09/30/251705 Dictated By: Shon Agustin DO 09/30/25 1658 Signed By: <Electronically signed by Shon Agustin DO in OV> 09/30/251705 Vital Signs Vital Reading Result Reference Range Collection Date/Time Height 61 [in_i] August 15, 2025 12:08ptTpjzod49.50 kgSeptember 2024 4:25amBody Dtskfcjgofz76.3 [degF]97.6-99.0Sept2024 9:35amHeart Rate87 /min 60-100Sept2024 9:35amRespiratory rate18 /vqf64-68Kqbmohqdh 24th, 2025 9:35amOxygen saturation by Pulse pykhcgoh89 %95-100Sept2024 9:35amBP Flxwnrdn142 mm[Hg]100-140September 2024 9:35amBP Ttaesqdud34 mm[Hg]60-100September 2024 9:35amInhaled oxygen zpeuybupuzvmy03 %August 15, 2025 9:25amInhaled oxygen flow rate2 L/minSeptember 2024 7:55am Wavvgo94 [in_i]August 23, 2025 9:34hzKzbflr01.93 kgSeptember 2024 9:12amBody Llbewrjpmxq37.4 [degF]97.6-99.0Sept2024 9:12amHeart Rate 58 /xhs88-141Ndazeitnr 30th, 2025 9:12amOxygen saturation by Pulse axslsmxx19 % 95-100Sept2024 9:12amBP Tekznprq090 mm[Hg]100-140September 2024 9:12amBP Earovfccq31 mm[Hg]60-100September 2024 9:12amBMI (Body Mass Index)21.6 kg/y9Cgqkenzki 2024 9:98ejDfudus54 [in_i]August 30, 2025 9:14asAapifh44.15 kgOctober 2024 9:48amBody Qpocsopshpt29.6 [degF]97.6-99.0 August 30, 2025 9:48amHeart Rate66 /pno68-685Skkrtdv 2024 9:48amOxygen saturation by Pulse dyhnilks70 %95-100October 2024 9:48amBP Posyhxbc974 mm[Hg]100-140October 2024 9:48amBP Rbrqwgcun11 mm[Hg]60-100October 2024 9:48amBMI (Body Mass Index)20.9 kg/p0Eeqketh2024 9:63ioFnooos56 [in_i]September 16, 2025 8:87tkNoamti98.06 kgOctober 2024 8:34amBody Hbifwfmmsrs91 [degF]97.6-99.0October 2024 8:34amHeart Rate71 /wmk37-650 September 16, 2025 8:34amOxygen saturation by Pulse zhrraoqz95 %95-100October 2024 8:34amBP Ebcvsxfd551 mm[Hg]100-140October 2024 8:34amBP Nlhrqrikx60 mm[Hg]60-100October 2024 8:34amBMI (Body Mass Index)20.8 kg/m2 September 16, 2025 8:06fgFagzle52 [in_i]September 29, 2025 10:30ddOhckws84.06 kg September 29, 2025 10:15amHeart Rate70 /lps18-062Jgqsoqhj 2024 10:15am Oxygen saturation by Pulse ucywhxrn81 %95-100Nov2024 10:15amBP Iagsyqeq820 mm[Hg]100-140November 2024 10:15amBP Obbnwsdth96 mm[Hg]60-100 September 29, 2025 10:15amBMI (Body Mass Index)20.8 kg/t4Xfgyxehj 2024 10:21mqXqfdda09.70 kgDecember 2024 10:07amHeart Rate69 /wdj37-897Iriabpai 2024 10:07amRespiratory rate20 /qpk87-28Wkoefnrw 2024 10:07amOxygen saturation by Pulse sspwewgt73 %95-100December 2024 10:07amBP Qhovxefb223 mm[Hg]100-140December 2024 10:07amBP Bjncverwr85 mm[Hg]60-100December 2024 10:30uyExbwkh37 [in_i]May 12, 2025 8:25qaWxzykq73.70 kgDecember 2024 10:07amBody Sbnqofyplwv68.4 [degF]97.6-99.0Sepember 2022 11:17amHeart Rate65 /egk81-25RqyybhwrOctober 20, 2023 11:17amRespiratory rate16 /min 12-24October 20, 2023 11:17amOxygen saturation by Pulse ymsxbeyd75 %95-100 October 20, 2023 11:17amBP Uhycpcrf441 mm[Hg]100-140October 20, 2023 11:17amBP Fojxzqmcx73 mm[Hg]60-100October 20, 2023 11:17am Advance Directives Advance Directive Response Recorded Date/ Time Advance Directives No February 23 9:38am Insurance Providers Guarantor Hillary Gunn Address [address] [facility] [address]Greaehh Info.Home Phone: Coverage Status Update:2025 Payer Group Member ID Coverage Type Subscriber Relationship to Subscriber Effective Date Expiration Date Jamarcus MOREL/LAKSHMI [id number] A Fox Id: [id number] [facility] [address] Home Phone: Email: [email or web address] Retired Id: [id number] J Fox Id: [id number] [address] [address] [facility] [address] Home Phone: Email: [email or web address] Id: [id number] Trevor Gunn Id: [id number] [address] [facility] [address] Home Phone: Email: [email or web address] Encounters Encounter Location(s) Arrival/Admit Date Discharge/Departure Date Discharge/Departure Disposition Provider(s) Discharged Inpatient -[address] [place] [address] August 14, 2025 4:18pm August 17, 2025 4:05pm Discharged to home care or self care (routine discharge) Sae Jaramillo MD Departed Physician/ Provider Office Visit -[facility] August 23, 2025 9:48am August 23, 2025 10:50am Discharged to home care or self care (routine discharge) Naheed Thompson DO Departed Physician/ Provider Office Visit -[facility] August 30, 2025 10:28am August 30, 2025 11:13am Discharged to home care or self care (routine discharge) Naheed Thompson DO Departed Physician/ Provider Office Visit -[facility] September 16, 2025 9:11am September 16, 2025 9:55am Discharged to home care or self care (routine discharge) Naheed Thompson DO Departed Clinical -[facility] September 16, 2025 3:21pm September 16, 2025 3:22pm Discharged to home care or self care (routine discharge) REFERRAL SELF Departed Physician/ Provider Office Visit -[facility] September 29, 2025 9:53am September 29, 2025 10:52am Discharged to home care or self care (routine discharge) Naheed Thompson DO Departed Clinical -[facility] [employer] September 30, 2025 2:44pm September 30, 2025 2:45pm Discharged to home care or self care (routine discharge) Naheed Thompson DO Departed Physician/ Provider [facility] November 10, 2025 9:50am November 10, 2025 10:48am Discharged to home care or self care (routine discharge) Ariadna Gonzalez MD [facility] October 9:51am Ariadna Gonzalez MD Recent Diagnosis Onset Date Admit Date COPD (chronic obstructive pulmonary disease) Unk nown August 14, 2025 4:18pm Generalized anxiety disorder Unknown Sep 2024 4:18pm History of radiation exposure Unknown Se pt2024 4:18pm Myocardial infarction Unknown August 14, 2025 4:18pm Obstructive sleep apnea Unknown 2024 4:18pm Complete obstruction of small intestine Unknown August 14, 2025 4:18pm Leukocytosis Unknown August 14, 2025 4:18pm Small bowel obstruction Unknown 2024 4:18pm Cough Unknown August 23, 2025 9:48am Diabetes Unknown August 23, 2025 9:48am Small bowel obstruction Unknown 2024 9:48am Cough Unknown August 30 10:28am Diarrhea Unknown August 30 10:28am Insomnia Unknown August 30 10:28am Bronchitis Unknown September 16 9:11am Bronchitis Unknown September 29 9:53am Left lower quadrant abdominal pain Unknown September 29, 2025 9:53am Duodenitis Unknown November 10, 2 025 9:50am Iron deficiency anemia Unknown November 10, 2025 9:50am Rectal cancer Unknown November 10, 2 025 9:50am Leukocytosis Unknown November 10, 2 025 9:50am Iron deficiency anemia Unknown November 10, 2025 9:51am Rectal cancer Unknown November 10, 2 025 9:51am GERD (gastroesophageal reflux disease) Unknown November 10, 2025 9:51am Leukocytosis Unknown November 10, 2 025 9:51am Functional Status Observation Response Date Recorded Dressing Patient at Baseline August 172024 3:05pm Eating Patient Not at Baseline 2024 3:05pm Bathing Patient at Baseline August 172024 3:05pm Disability Status Patient at Baseline August 17, 2025 3:05pm Mental Status Observation Response Date Recorded Cognitive Status Patient at Baseline July 262024 3:05pm Cognitive/Mental Status Assessments Assessments Diagnosis Onset Date Resolution Status Admit Date COPD (chronic obstructive pulmonary dise ase) acuteSept2024 4:18pmGeneralized anxiety disorderacuteSept2024 4:18pmHistory of radiation exposureacuteSe2024 4:18pm Myocardial infarctionacuteSept2024 4:18pmObstructive sleep apnea acuteSept2024 4:18pmComplete obstruction of small intestineresolved August 14, 2025 4:18pmLeukocytosisresolvedSept2024 4:18pmSmall bowel obstructionresolvedSept2024 4:18pmCoughacuteSept2024 9:48amDiabeteschronicSeptember 2024 9:48amSmall bowel obstruction resolvedAugust 23, 2025 9:48amCoughacuteOctober 2024 10:28amDiarrhea acuteOctober 2024 10:28amInsomniaacuteOctober 2024 10:28amBronchitis acuteOctober 2024 9:11amBronchitisacuteNov2024 9:53amLeft lower quadrant abdominal painacuteNov2024 9:53amDuodenitisacutecember 2024 9:50amIron deficiency anemiaacuteNovember 10, 2025 9:50amRectal canceracutece2024 9:50amLeukocytosisresolvedce2024 9:50amIron deficiency anemiaacutecemb2024 9:51amRectal canceracute November 10, 2025 9:51amGERD (gastroesophageal reflux disease)deletedNovember 10, 2025 9:51amLeukocytosisdeletedce2024 9:51am Plan of Treatment Author Ariadna Gonzalez [facility]AuthoredNovember 10, 2025 10:47amThe patient has been referred to our outpatient hematology clinic in regards to iron deficiency anemia. She started taking oral ferrous sulfate approximately 1 month ago. Overall, this is not well-tolerated given GI side effects (dyspepsia and constipation). She has reportedly been told over the years that she is anemic, however has never received intravenous iron replacement and or blood transfusion. She was hospitalized in March 2023 with severe viral gastroenteritis, dehydration and acute kidney injury. During that hospitalization on 2023, she was first noted to have iron deficiency with iron saturation of 3.9%; ferritin???6.4. At that point in time, CBC revealed WBC count of 13.1; hemoglobin 8.5; hematocrit 28.5; platelet count 389,000. Most recent laboratories dated 06/25/2023 reveal iron saturation of 1.6%; WBC count of 12.4; hemoglobin 8.6; hematocrit 29.0; platelet count 316,000; with significant microcytosis suggestive of iron deficiency. Due to the severity of her anemia and current symptoms including: severe fatigue, dyspnea on exertion, shortness of breath, leg cramping, and ice cravings - we will replete iron with Venofer 300 mg IV x 3 doses to commence as soon as possible. Her last GI evaluation was a colonoscopy with Dr. Carrera [place] [facility] in May [place]23. According to the patient he removed 2 polyps, but there was no evidence of cancer recurrence. I do not have report available but will request records. She also still has surveillance/longitudinal follow-up with Dr. Osei for previous rectal cancer diagnosis in 2017. We will proceed with Venofer replacement and recheck labs in 6 weeks after last Venofer infusion with CBC, reticulocyte count, iron studies/ferritin. If no significant improvement or continued decline/need for frequent iron infusion may consider referral to GI for EGD and/or wireless capsule endoscopy. 08/20/23: She received 3 doses of IV Venofer 300 mg each dose middle of June 2023. Ever since her labs on 08/18/2023 revealed WBC improved to 11.9 and down from 13.2. Hemoglobin improved to 13.6 from 7.8 and platelets of 199,000. Her iron studies improved iron improved from 10 to 70 and TIBC is 406 improved from 643. Iron saturation improved from 1.6% to 17.2 and ferritin improved from 6 to 116. Patient feeling better. 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 At this point I asked her to take oral iron once a day or decrease oral intake of food hydrate and recheck iron and we will repeat iron studies with CBC in 2 months and see her then 10/20/2023: Hillary is here for interval 2 month follow up after completing a round of intravenous Venofer 300 mg IV x 3 doses in June 2023; followed by initiation of oral iron in late July 2023. Repeat iron studies show slight decline in iron saturation from 17.2 to 13%; with preserved ferritin and robust hemoglobin of 14.3. Clinically, she is still feeling tired; less tired than prior to the iron infusions, but still fatigued. She has recently picked up smoking again - just smoking a few cigarettes here and there. No recent infections or COPD exacerbation. Has not been on any oral corticosteroids in at least a few months. WBC count is 12.0. As previously noted, she had colonoscopy with Dr. Carrera in May 2023 but did not have an EGD. She notes significant worsening discomfort in regards to acid reflux and GERD like symptoms. She has lost about 6-8 pounds over the last few months due to decreased appetite and early satiety. Denies melena, hematochezia or BRBPR. - Her hgb and ferritin were normal on 10/13/23. Therefore Chandni continued oral ferrous sulfate and patient was referred and seen by GI. 01/21/24: 3 months follow up for ARLENE and EGD results. - On 11/26/23 She underwent an EGD by Dr Maddox, EGD revealed Vascular ring distal esophagus with Mild duodenitis. - Labs on 01/16/24 revealed WBC 11.5, hgb 15.2, MCV 89.8, RDW 15.1, Plt 243K. Iron 68 normal TIBC was normal at 438 iron saturation was 15.5 slightly low but the ferritin was 70.1. Her iron saturation has increased although from 13.0-15.1. 05/19/24: She is doing well and tolerating oral iron once daily without any complaints. She is taking pantoprazole once daily. She denied any fevers or infections or diarrhea or any side effects to oral iron. She is here for her 4 months follow up on ARLENE and leukocytosis. Plan: Continue oral iron as currently doing. Add folic acid 0.8 mg and B12 1000 mcg 3 times a week of each, due to low normal and declining levels. Continue pantoprazole 40 mg once daily for 60 days then she can go back to her omeprazole 20 mg once daily. Labs again in 6 months with CBC, CMP, iron studies/ferritin, b12 and folate. She was asked to let us and GI know if she has bloody stool. RTC in 6 months. 11/10/24: She is doing okay overall, could be better. She believes she is lost about 35 pounds in the last 5 or 6 months without trying. This seems to be around the time of her significant home stressors as well as persistent diarrhea related to previous metformin usage. Weight seems to be stable overall the last 1 to 2 months. She is scheduled for follow-up with Dr. Carrera in January, but knows to call sooner with concerning symptoms. She denies any bleeding concerns. She continues on oral iron, vitamin B12, and folic acid. Labs remain okay. She will follow-up in 6 months, sooner if necessary. 05/12/2025: Iron sat 13% while taking oral iron. Tolerating oral iron but symptomatic. Needs cbc today, not done-Plan for parental iron if Hgb <12.0 cbc, iron profile, ferritin in 3 months then in 6 months cbc, cmp, iron profile and ferritin before f/u in 6 months Rectal cancer???diagnosed in 2016; status postsurgical resection with Dr. Osei with adjuvant [facility] She did not see medical oncology and did not receive any chemotherapy. She still follows regularly with Dr. Osei and last colonoscopy was done with Dr. Carrera at [facility] in May 2023. 05/12/2025: Denies current symptoms or complaints, follows Debi for GI symptoms. Scheduled to see GI within 2 months. In review of past several CBC's she does appear to have some transient, mild leukocytosis that seems to coincide with her recurrent hospital admissions. She is frequently admitted for infections, including pneumonia, viral gastroenteritis and COPD exacerbations. She has no focal signs or symptoms of infection at the moment. She is frequently on corticosteroids for the management of her COPD and bronchiectasis. She has normal platelet count and no evidence of hypercalcemia, renal/hepatic dysfunction. Will follow clinically for the time being. At time of her last CBC draw on 06/25/2023 she was on a Prednisone taper. WBC improved after IV iron to 11.9 down from 13, now back up to 12.0. No other constitutional symptoms, no focal signs/symptoms of infection. Patient has recently started smoking again - a few to 1/2 pack cigarettes per day. Will follow. Oct 2024 remains mild, okay overall. 05/12/2025: Obtaing cbc to reasess. Patient reports significant changes in baseline GERD symptoms; despite PPI twice daily. Has lost ~ 6-8 pounds in the last 6 months secondary to early satiety. As part of her iron deficiency and anemia work up would advise referral to GI for EGD - may defer colonoscopy as patient had routine colonoscopy with Dr. Carrera at [facility] in May 2023; has another appt scheduled with him in January 2024. On 11/26/23 She underwent an EGD by Dr Maddox, EGD revealed Vascular ring distal esophagus with Mild duodenitis. Oct 2024 no new concerns related to this. She continues to follow with Dr. Carrera 05/12/2015: Continues to follow Dr. Carrera reports no new concerns currently. Continues to report chronic diarrhea requiring Imodium and Budesonide. Taking omeprazole 20mg PO BID 11/10/25: Patient is here for 6 months follow-up for her history of iron deficiency anemia and leukocytosis. In terms of her rectal cancer duodenitis she is followed by Dr. Carrera at [facility] anyone and Dr. Osei. Her rectal cancer was resected in 2016 and she follows with periodic colonoscopy by [facility] and EGD by Dr. Carrera for the duodenitis. She is here for the results of the labs and symptoms at her last IV iron infusion was in June 2023. Labs on 11/07/2025 revealed totally normal CBC without leukocytosis or anemia. Hemoglobin is 15.1 normal RBC indices normal platelet count. Neutrophil count slightly high 8.5 otherwise normal WBC differential and the total WBC count is normal. CMP is unremarkable as well. Iron studies revealed normal iron 98 and normal iron saturation 27.5 ferritin is 92.8 and bilirubin is normal. LFTs unremarkable and total bili is 0.3 normal total protein is normal as well. Patient denied any constipation from her oral iron she is taking it daily progressing well without any epigastric pain or nausea. She saw Dr. Carrera JuneJuly 2025 and underwent colonoscopy and no reported evidence of recurrent rectal cancer. Denied any bleeding from other sources. Plan: Continue observation only for her history of iron deficiency anemia and history of rectal cancer. I asked her to let us know if she start having any bleeding or intolerance to oral iron or recurrent of the rectal cancer in the future colonoscopies. Repeat CBC CMP iron studies B12 and folate in 1 year and see her then. I gave her the option of following up with PCP but she wants to stick with us. Author Naheed [facility]ronAuthoredSeptember 2024 10:17amwell controlled at 5.9, continue good diet controll. resolved, having some diarrhea at this time. encouraged to continue small bland diet see how things go for the end of the week, did do a round of augmentin prior to hospital stay, if not improving will do stool studies. lungs clear, did have some evidence of fluid over load on last cxr-will repeat that today. will do tessalon, encouraged to call if worsening. over all does not appear sick and she reports over all does not feel overly sick just with the cough. Author Naheed [facility] AkronAuthoredOctober 2024 11:04amI did print out a prescription for Ambien, OARRS is appropriate. Continue Ambien 10 mg. She is here today for 1 week follow-up. She reports that much has improved since last week. Continues with a cough and shortness of breath and is feeling more worn out. Lung exam is clear today. She did have a round of doxycycline prior to this bowel obstruction we will do a Z-Prince at this time. Also requesting cough syrup we will send in. Recent hospitalization for small bowel obstruction last week she was improved but still having quite a bit of belly pain as well as diarrhea. This is about the same. Continues with epigastric belly pain continues with diarrhea. No vomiting no nausea is eating well. I did offer an x-ray and stool studies but she does follow-up with general surgery tomorrow she would just discuss with them at that time. Asked her to call us with an update. She voiced understanding agrees with the plan today. Knows today to call if she has any further issues. Author Naheed [facility]ronAuthoredOctober 2024 9:09amronchi and wheezing bilaterally. will do mucinex, prednisone, zpack. asked her to call next week if not improving. At that time will do cxry. she is happy with this plan. over all no distress in office today. Author Naheed Jersonnikky [facility] CenterNovember 2024 11:05amGiven location in [place] likely diverticulitis, will do Augmentin. She is very tender on exam just in left lower quadrant. I ordered STAT CT day, they could get her in tonight at 7pm, pt wanted to wait until tomorrow. Has appt tomorrow at 3pm. Encouraged if she worsens between now and then needs to go to the hospital, she voiced understanding. no fever or chills, appetitie is good. continues with cough, requesting codeine cough syrup as that has helped. lungs clear on exam. Future Tests Future scheduled test information is unavailable Pending Tests Test Name Ordered Date Scheduled Date Comprehensive Metabolic Panel November 10 10:44am 1 Years XR chest 2V* August 23, 2025 9:48am Future Visits Future appointment information is unavailable Future Procedures Procedure Name Ordered Date Scheduled Date Admit Status Order August 14, 2025 4:56pm S eptember 2024 4:56pm Discharge Order August 17, 2025 1:03pm Sept ember 2024 1:03pm Consult to General Surgery August 14, 2025 4:56pm August 14, 2025 4:56pm Return to [facility] Oncology Clinic October 20 11:42am 3 Months Oncology Outpatient Referral To: October 20, 2023 11:47am 1 Days Apply O2 via Nasal Cannula 4 L to Maintain SpO2 of >=90% July 10, 2023 10:32am July 17, 2023 11:00pm Apply O2 via Nasal Cannula 4 L to Maintain SpO2 of >=90% July 10, 2023 10:32am July 21, 2023 11:00pm Apply O2 via Nasal Cannula 4 L to Maintain SpO2 of >=90% July 10, 2023 10:32am July 24, 2023 11:00pm Orders Panel Function Communication Order July 21, 2023 1:39pm July 21, 2023 1:39pm Complete Blood Count Auto Diff November 10 10:44am 1 Years Iron and TIBC Profile November 10, 2025 10:44a m 1 Years Ferritin November 10, 2025 10:44am 1 Ye ars Vit. B12/Folate Profile November 10, 2025 10:4 4am 1 Years Future Medications Future medication information is unavailable Patient Instructions Instruction Admit Date Know your Meds August 14, 2025 4:18pm Goals Acute Goals Author Authored Date Exhibit optimal tissue perfu lee ann * Exhibits adequate oxygenation and ventilation * Exhibits adequate cardiac output * Regains stable cardiac rhythm * Maintains optimal activity level * Maintains balanced intake and outputJuancarlosAshtabula General Hospitaleptember 2024 5:54pmSkin integrity intact Machelle [facility] 2024 5:54pmMaintain/increase activity levels * Understands factors that may lead to activity intolerance * Helps perform self care activities * Maintains maximum range of motion * Increase/regain muscle mass and strength * Maintains VS WNL during activity * Maintain intact skin integrity Updated: 01/06/2023JuancarlosAshtabula General Hospitaleptember 2024 5:54pmFall Prevention 2022JuancarlosAshtabula General Hospitaleptember 2024 5:54pmMaintain/increase activity levels * Understands factors that may lead to activity intolerance * Helps perform self care activities * Maintains maximum range of motion * Increase/regain muscle mass and strength * Maintains VS WNL during activity * Maintain intact skin integrity Updated: 01/06/2023sarah SamuelMetroHealth [facility] CenterAulea regional medical centert 2022 12:24pm Preferences Type Detail Treatment Intervention Code Status: Full Code Progress Note Author Ariadna Gonzalez OhiohealthNote Date/TimeDecemb2024 10:47am [facility] [place] [id number] Cancer Center Note Signed Patient: Hillary Gunn MR#: [id number] : 1950 Acct:[id number] Age/Sex: 75 / F Type: REG AMB Date of Service: 11/10/25 Copies to: Naheed Thompson, DO~ Assessment & Plan A/P (1) Iron deficiency anemia: Plan: The patient has been referred to our outpatient hematology clinic in regards to iron deficiency anemia. She started taking oral ferrous sulfate approximately 1month ago. Overall, this is not well-tolerated given GI side effects (dyspepsiaand constipation). She has reportedly been told over the years that she is anemic, however has never received intravenous iron replacement and or blood transfusion. She was hospitalized in March 2023 with severe viral gastroenteritis, dehydration and acute kidneyinjury. During that hospitalization on 2023, she was first noted to have iron deficiency with iron saturation of 3.9%; ferritin???6.4. At that point in time, CBC revealed WBC count of 13.1; hemoglobin 8.5; hematocrit 28.5; platelet count 389,000. Most recent laboratories dated 06/25/2023 reveal iron saturation of 1.6%; WBC count of 12.4; hemoglobin 8.6; hematocrit 29.0; platelet count 316,000; with significant microcytosis suggestive of iron deficiency. Due to the severity of her anemia and current symptoms including: severe fatigue, dyspnea on exertion, shortness of breath, leg cramping, and ice cravings - we will replete iron with Venofer 300 mg IV x 3 doses to commence as soon as possible. Her last GI evaluation was a colonoscopy with Dr. Carrera at [facility] in May 2023. According to the patient he removed 2 polyps, but there was no evidence of cancer recurrence. I do not have report available but will request records. She also still has surveillance/longitudinal follow-up with Dr. Oseifor previous rectal cancer diagnosis in 2017. We will proceed with Venofer replacement and recheck labs in 6 weeks after last Venofer infusion with CBC, reticulocyte count, iron studies/ferritin. If no significant improvement or continued decline/need for frequent iron infusion mayconsider referral to GI for EGD and/or wireless capsule endoscopy. 08/20/23: She received 3 doses of IV Venofer 300 mg each dose middle of June 2023. Ever since her labs on 08/18/2023 revealed WBC improved to 11.9 and down from 13.2. Hemoglobin improved to 13.6 from7.8 and platelets of 199,000. Her iron studies improved iron improved from 10 to 70 and TIBC is 406improved from 643. Iron saturation improved from 1.6% to 17.2 and ferritin improved from 6 to116. Patient feeling better. 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 At this point I asked her to take oral iron once a day or decrease oral intake of food hydrate and recheck iron and we will repeat iron studies with CBC in 2 months and see her then 10/20/2023: Hillary is here for interval 2 month follow up after completing a round of intravenous Venofer 300 mg IV x 3 doses in June 2023; followed by initiation of oral iron in late July 2023. Repeat iron studies show slight decline in iron saturation from 17.2 to 13%; with preserved ferritin and robust hemoglobin of 14.3. Clinically, she is still feeling tired; less tired than prior to the iron infusions, but still fatigued. She has recently picked up smoking again - just smoking afew cigarettes here and there. No recent infections or COPD exacerbation. Has not been on any oral corticosteroids in at least a few months. WBC count is 12.0. As previously noted, she had colonoscopy with Dr. Carrera in May 2023 but did not have an EGD. She notes significant worsening discomfort inregards to acid reflux and GERD like symptoms. She has lost about 6-8 pounds over the last few months due to decreased appetite and early satiety. Denies melena, hematochezia or BRBPR. - Her hgb and ferritin were normal on 10/13/23. Therefore Chandni continued oralferrous sulfate andpatient was referred and seen by GI. 01/21/24: 3 months follow up for ARLENE and EGD results. - On 11/26/23 She underwent an EGD by Dr Maddox, EGD revealed Vascular ring distal esophagus with Mild duodenitis. - Labs on 01/16/24 revealed WBC 11.5, hgb 15.2, MCV 89.8, RDW 15.1, Plt 243K. Iron 68 normal TIBC was normal at 438 iron saturation was 15.5 slightly low but the ferritin was 70.1. Her iron saturationhas increased although from 13.0-15.1. 05/19/24: She is doing well and tolerating oral iron once daily without any complaints. She is taking pantoprazole once daily. She denied any fevers or infections or diarrhea or any side effects to oral iron. She is here for her 4 months follow up on ARLENE and leukocytosis. Plan: Continue oral iron as currently doing. Add folic acid 0.8 mg and B12 1000 mcg 3 times a week of each, due to low normaland declining levels. Continue pantoprazole 40 mg once daily for 60 days then she can go back to her omeprazole 20 mg once daily. Labs again in 6 months with CBC, CMP, iron studies/ferritin, b12 and folate. She was asked to let us and GI know if she has bloody stool. RTC in 6 months. 11/10/24: She is doing okay overall, could be better. She believes she is lost about 35 pounds in the last 5 or 6 months without trying. This seems to be around the time of her significant home stressors as well as persistent diarrhea related toprevious metformin usage. Weight seems to be stable overall the last 1 to 2 months. She is scheduled for follow-up with Dr. Carrera in January, but knows to call soonerwith concerning symptoms. She denies any bleeding concerns. She continues on oral iron, vitamin B12, and folic acid. Labs remain okay. She will follow-up in 6 months, sooner if necessary. 05/12/2025: Iron sat 13% while taking oral iron. Tolerating oral iron but symptomatic. Needs cbc today, not done-Plan for parental iron if Hgb <12.0 cbc, iron profile, ferritin in 3 months then in 6 months cbc, cmp, iron profile and ferritin beforef/u in 6 months (2) Rectal cancer: Plan: Rectal cancer???diagnosed in 2016; status postsurgical resection with Dr. Osei with adjuvant radiation therapy at [facility] ([facility]). Shedid not see medical oncology and did not receive any chemotherapy. She still follows regularly with Dr. Osei and last colonoscopy was done with Dr. Carrera at [facility] in May 2023. 05/12/2025: Denies current symptoms or complaints, follows Debi for GI symptoms.Scheduled to see GIwithin 2 months. (3) Leukocytosis: Plan: In review of past several CBC's she does appear to have some transient, mild leukocytosis that seems to coincide with her recurrent hospital admissions. She is frequently admitted for infections, including pneumonia, viral gastroenteritis and COPD exacerbations. She has no focal signs or symptoms of infection at the moment. She is frequently on corticosteroids for the managementof her COPD and bronchiectasis. She has normal platelet count and no evidence ofhypercalcemia, renal/hepatic dysfunction. Will follow clinically for the time being. At time of her last CBC draw on 06/25/2023 she was on a Prednisone taper. WBC improved after IV iron to 11.9 downfrom 13, now back up to 12.0. No other constitutional symptoms, no focal signs/symptoms of infection. Patient has recently started smoking again - a few to 1/2 pack cigarettes per day. Will follow. Oct 2024 remains mild, okay overall. 05/12/2025: Obtaing cbc to reasess. (4) Duodenitis: Plan: Patient reports significant changes in baseline GERD symptoms; despite PPI twicedaily. Has lost ~ 6-8 pounds in the last 6 months secondary to early satiety. As part of her iron deficiency and anemia work up would advise referral to GI for EGD - may defer colonoscopy as patient had routine colonoscopy with Dr. Carrera at [facility] in May 2023; has another appt scheduled with him in January 2024. On 11/26/23 She underwent an EGD by Dr Maddox, EGD revealed Vascular ring distal esophagus with Mild duodenitis. Oct 2024 no new concerns related to this. She continues to follow with Dr. Carrera 05/12/2015: Continues to follow Dr. Carrera reports no new concerns currently. Continues to report chronic diarrhea requiring Imodium and Budesonide. Taking omeprazole 20mg PO BID Plan 11/10/25: Patient is here for 6 months follow-up for her history of iron deficiency anemiaand leukocytosis. In terms of her rectal cancer duodenitis she is followed by Dr. Carrera at [facility] anyone and Dr. Osei. Her rectal cancer was resected in 2016 and she follows with periodic colonoscopy by [facility] and EGD by Dr. Carrera for the duodenitis. She is here for the results of the labs and symptoms at her last IV iron infusion was in June 2023. Labs on 11/07/2025 revealed totally normal CBC without leukocytosis or anemia. Hemoglobin is 15.1normal RBC indices normal platelet count. Neutrophil count slightly high 8.5 otherwise normal WBC di fferential and the total WBC count is normal. CMP is unremarkable as well. Iron studies revealed normal iron 98 and normal iron saturation 27.5 ferritin is92.8 and bilirubin is normal. LFTs unremarkable and total bili is 0.3 normal total protein is normal as well. Patient denied any constipation from her oral iron she is taking it daily progressing well without any epigastric pain or nausea. She saw Dr. Carrera June of July 2025 and underwent colonoscopy and no reported evidence of recurrent rectal cancer. Denied any bleeding from other sources. Plan: Continue observation only for her history of iron deficiency anemia and history of rectal cancer. Iasked her to let us know if she start having any bleeding or intolerance to oral iron or recurrent of the rectal cancer in the future colonoscopies. Repeat CBC CMP iron studies B12 and folate in 1 year and see her then. I gave her the option of following up with PCP but she wants to stick with us. Orders: Orders Ferritin 1 Year C20 - Malignant neoplasm of rectum, D50.9 - Iron deficiency anemia, unspecified Comprehensive Metabolic Panel 1 Year C20 - Malignant neoplasm of rectum, D50.9 - Iron deficiency anemia, unspecified Iron and TIBC Profile 1 Year C20 - Malignant neoplasm of rectum, D50.9 - Iron deficiency anemia, unspecified Vit. B12/Folate Profile 1 Year C20 - Malignant neoplasm of rectum, D50.9 - Irondeficiency anemia, unspecified Complete Blood Count Auto Diff 1 Year C20 - Malignant neoplasm of rectum, D50.9- Iron deficiency anemia, unspecified Patient Instructions: cbc,cmp,iron,b12 in 1 year follow up 1 year with [facility] Treatment Plan Iron Sucrose (Venofer) Clinical Indication No Indication Cycle Number Last Admin 1 of 1 Completed Cycle Day Next Admin No Active Chemotherapy History of Present Illness HPI Chief Complaint: Patient is here today for a 3 months follow up visit for iron deficiency anemia and go over labs HPI: 10/20/2023: Hillary is here for interval 2 month follow up after completing a round of intravenous Venofer 300 mg IV x 3 doses in June 2023; followed by initiation of oral iron in late July 2023. Repeat iron studies show slight decline in iron saturation from 17.2 to 13%; with preserved ferritin and robust hemoglobin of 14.3. Clinically, she is still feeling tired; less tired than prior to the iron infusions, but still fatigued. She has recently picked up smoking again - just smoking afew cigarettes here and there. No recent infections or COPD exacerbation. Has not been on any oral corticosteroids in at least a few months. WBC count is 12.0. As previously noted, she had colonoscopy with Dr. Carrera in May 2023 but did not have an EGD. She notes significant worsening discomfort inregards to acid reflux and GERD like symptoms. She has lost about 6-8 pounds over the last few months due to decreased appetite and early satiety. Denies melena, hematochezia or BRBPR. 08/20/23: She received 3 doses of IV Venofer 300 mg each dose middle of June 2023. Ever since her labs on 08/18/2023 revealed WBC improved to 11.9 and down from 13.2. Hemoglobin improved to 13.6 from7.8 and platelets of 199,000. Her iron studies improved iron improved from 10 to 70 and TIBC is 406improved from 643. Iron saturation improved from 1.6% to 17.2 and ferritin improved from 6 to116. Patient feeling better. 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 Original consultation: Hillary Gunn is a very nice 73-year-old female with a past medical history significant for: Hypertension, COPD, bronchiectasis, paroxysmal atrial fibrillation (recently taken off anticoagulation with Eliquis due to anemia), obstructive sleep apnea, myocardial infarction, diabetes mellitus, anemia, osteopenia, GERD, migraine, rectal cancer, melanoma, and uterine cancer. The patient has been referred to our outpatient hematology clinic in regards to iron deficiency anemia. She started taking oral ferrous sulfate approximately 1month ago. Overall, this is not well-tolerated given GI side effects (dyspepsiaand constipation). She has reportedly been told over the years that she is anemic, however has never received intravenous iron replacement and or blood transfusion. She was hospitalized in March 2023 with severe viral gastroenteritis, dehydration and acute kidneyinjury. During that hospitalization on 2023, she was first noted to have iron deficiency with iron saturation of 3.9%; ferritin???6.4. At that point in time, CBC revealedWBC count of 13.1; hemoglobin 8.5; hematocrit 28.5; platelet count 389,000. Most recent laboratories dated 06/25/2023 reveal iron saturation of 1.6%; WBC count of 12.4; hemoglobin 8.6; hematocrit 29.0; platelet count 316,000; with significant microcytosis suggestive of iron deficiency. In review of past several CBC's she does appear to have some transient, mild leukocytosis that seems to coincide with her recurrent hospital admissions. She is frequently admitted for infections, including pneumonia, viral gastroenteritis and COPD exacerbations. She has no focal signs or symptoms of infection at the moment. She is frequently on corticosteroids for the managementof her COPD and bronchiectasis. She has normal platelet count and no evidence ofhypercalcemia, renal/hepatic dysfunction. No personal history of venous thrombosis. Personal history of malignancy???cervical cancer at age 30; status post total hysterectomy. Right forearm melanoma - removed by Dr. Zora Echols in 2019 - no evidence of recurrence; next appt is in 1 month. Rectal cancer???diagnosed in 2016; status postsurgical resection with Dr. Osei with adjuvant radiation therapy at [facility] ([facility]). She did not see medical oncology and did notreceive any chemotherapy. She still follows regularly with Dr. Osei and last colonoscopy was done with Dr. Carrera at [facility] in May 2023. I do not have report available, however, she states that he removed a couple of polyps and there was no evidence of cancer recurrence. She did not have recent EGD, but does note that at times she notices dark tarry stool, nothing as of recent. Unsure if this is related to her oral iron supplementation. Otherwise, denies abdominal pain, unintentional weight loss, fever/chills, night sweats, lymphadenopathy, or new bony pain 01/21/24: She is here for 3 months follow up for ARLENE and for lab and EGD results. She has been taking her ferrous sulfate 325 mg once daily without any major side effects. Patient denies any bleeding from any source rectally or gross hematuria and denies any melena. On 11/26/23 She underwent an EGD byDr Maddox, EGD revealed Vascular ring distal esophagus with Mild duodenitis. She is taking omeprazole 20 mg once daily and she has black stool from the oral iron but not bloodystool She denied epigastric pain or nausea or vomiting form the oral iron. 05/19/24: She is doing well and tolerating oral iron once daily without any complaints. She is taking pantoprazole once daily. She denied any fevers or infections or diarrhea or any side effects to oral iron. She is here for her 4 months follow up on ARLENE and leukocytosis. 11/10/24 energy seems to be getting lower overall dyspnea on exertion and occasional chest pain unchanged has some episodes of dizziness denies n/v. Gets diarrhea frequently, is on budesonide for this has dark stool, doesn't seem to be sticky using CPAP regularly, just had settings checked and got smaller headgear has lost weight - from 149 to 112- over the last 5 months without trying denies fevers, chills, night sweats no changes in her normal aches and pains sees Dr. Carrera in January again. Just had scopes done maybe 4-5 months ago and shestates no issues with these 05/12/2025: Hillary is here for her 6 month f/u visit she had an iron profile done 04/29/2025 without cbc. Iron sat 13 and ferritin 31.6. She reports moderate fatigue, she reports her sleep fluctuatesat night, she states she has more fatigue when she does not sleep well the night before. She statesshe wears a CPAP at HS. She states she restless legs and leg cramping at HS that prevents her from being able to sleep. She states her toes even have cramping. She does take the ropinirole at HS and does not seem to help much. Once she wakes up at HS, she is unable to sleep after that. She does chronic low back pain 05/03, takes muscle relaxant intermittently, does not help much and follows jaron vaz, she is scheduled for a back injection on Friday with Dr. Connors. She does report craving ice intermittently. Reports having A-Fib with intermittent palpitations, no CP. She reports bruising easily BUE and BLE. She denies sob, no cough or recent infections. She reports chronic diarrhea,takes Budesonide and it helps with cramping and Imodium daily. She follows GI and is scheduled to see them within the next couple months (Dr. Carrera). She states her stools are dark from the iron table, denies melena. She saw pulmonology yesterday, no new concerns. Reports very little tingling in the fingertips. We will get cbc today. Will order parental iron if Hgb <12.0 with symptoms. repaet cbc, iron profile, and ferritin in 3 months then again in 6 months with cmp and f/u visit. 11/10/25: Patient is here for 6 months follow-up for her history of iron deficiency anemiaand leukocytosis. In terms of her rectal cancer duodenitis she is followed by Dr. Carrera at [facility] anyone and Dr. Osei. Her rectal cancer was resected in 2016 and she follows with periodic colonoscopy by [facility] and EGD by Dr. Carrera for the duodenitis. She is here for the results of the labs and symptoms at her last IV iron infusion was in June 2023. Labs on 11/07/2025 revealed totally normal CBC without leukocytosis or anemia. Hemoglobin is 15.1normal RBC indices normal platelet count. Neutrophil count slightly high 8.5 otherwise normal WBC di fferential and the total WBC count is normal. CMP is unremarkable as well. Iron studies revealed normal iron 98 and normal iron saturation 27.5 ferritin is92.8 and bilirubin is normal. LFTs unremarkable and total bili is 0.3 normal total protein is normal as well. Patient denied any constipation from her oral iron she is taking it daily progressing well without any epigastric pain or nausea. She saw Dr. Carrera June of July 2025 and underwent colonoscopy and no reported evidence of recurrent rectal cancer. Denied any bleeding from other sources. Summary of Therapies Summary of Therapies: 1.) 07/10/2023: orders prepared for Venofer 300 mg IV x 3 doses 2.) Oral ferrous sulfate 325 mg PO once daily - started 08/20/2023 Intake Vitals/Pain Assessment 11/10/25 10:07 Weight 51.71 kg BP 129/70 Blood Pressure Location Rt brachial Position Sitting Pulse 69 Pulse Source NIBP Respiration 20 Pulse Oximetry (%) 92 L Oxygen Delivery Method room air Are you having pain? No Intake Visit Reasons: Follow Up 6 Months Allergies moxifloxacin (From Avelox) Allergy (Unknown, Verified 11/10/25 10:08) Anaphylaxis Home Medications - Last Reconciled 11/10/25 by SHIRA Diaz albuterol sulfate 90 mcg/actuation (ProAir HFA) 2 inhalations inhalation Q4H PRN amoxicillin-pot clavulanate 875-125 mg 1 tab PO BID 10 days aspirin 81 mg PO DAILY zblcpkdtmkzpqqy-eftvueyzw-RD 2-30-10 mg/5 mL (Bromfed DM) 5 mL PO Q4-6H PRN budesonide DR-ER 9 mg PO QDAY buspirone 10 mg PO TID CPAP (Continuous Positive Airway Pressure) As directed [facility] [employer] Comp. ferrous sulfate 325 mg PO DAILY lbortjinanr-fsdhhbpxc-uocpoogw 100-62.5-25 mcg (Trelegy Ellipta) 1 inh inhalation Q24H 90 days gabapentin 600 mg PO TID guaifenesin ER (Mucinex) 600 mg PO BID loperamide 2 mg PO DAILY magnesium glycinate 600 mg PO DAILY metoprolol succinate ER 100 mg PO QDAY nitroglycerin 0.6 mg sublingual ONCE omeprazole 20 mg PO BID potassium 20 mg PO DAILY primidone 25 mg (1/2 x 50 mg) PO QHS promethazine-codeine 6.25-10 mg/5 mL 5 mL PO Q6HR PRN 10 days ropinirole TAKE 1 TABLET BY MOUTH DAILY 1 TO 3 HOURS BEFORE BEDTIME sertraline 150 mg (1.5 x 100 mg) PO DAILY trazodone 100 mg PO QHS zolpidem (Ambien) 10 mg PO HS 90 days Gastrointestinal Is the patient taking opioids for pain control?: No Bowel Protocol for Opioids Given: No Bowel Pattern: Irregular Bowel Movement Aid(s): None Falls Fall Precaution Measures Taken: Patient in chair Nurse's Note: Patient is here for a 6 month follow up with labs for review. No concerns voicedat time of intake. 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 multiple surgeries to repair Depression Melanoma Rectal cancer s/p radiation Migraine GERD (gastroesophageal reflux disease) Neuropathy Insomnia COPD (chronic obstructive pulmonary disease) Surgical History Surgical History History of surgery on lower extremity lt leg S/P epidural steroid injection 05/2023 History of surgery on wrist lt. ORIF History of neck surgery History of bronchoscopy 02/2023 History of open reduction and internal fixation (ORIF) procedure left wrist History of foot surgery L great toe pin insertion/ removal, neuroma removed lt. foot History of hysterectomy Family History Family History Mother Cervical cancer Cancer History of malignant neoplasm of cervix Father Accidental , industrial Sister Pancreatic cancer Brother Cardiovascular disease Diabetes Sister Cervical cancer Social History Social History Smoking status: Current every day smoker What tobacco products do you use: cigarettes Packs per day: 0.5 Cigarettes per day: 10 Within the past year, how often did you have a drink containing alcohol: never AUDIT-C Alcohol total score: 0 AUDIT-C Alcohol score interpretation: A score less than 3 is consistent with normal alcohol consumption. 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 Chest clear, distant to auscultation bilaterally without wheezing crackles or rhonchi Heart regular rate and rhythm S1-S2 without murmurs gallop or rub Abdomen soft nontender not distended without hepatosplenomegaly or masses clinically Extremities no edema of the lower extremities Skin without any suspicious rashes Lymphatic system no lymphadenopathy in the cervical area axillary areas or inguinal areas bilaterally Neurological exam patient is cooperative alert and oriented x3 no focal deficits. Results - [facility] LAB RESULTS Corrected WBC, (3.8-11.6) 10.9 X10E3/uL 11/07/25, 10:4 8 Hgb, (11.8-15.4) 15.1 g/dL 11/07/25, 10:48 Hct, (34.0-46.4) 44.2 % 11/07/25, 10:48 MCV, (80-100) 89.9 fl 11/07/25, 10:48 RDW, (11.9-15.3) 14.4 % 11/07/25, 10:48 Plt Count, (150-450) 210 x10E3/uL 11/07/25, 10:48 Sodium, (136-145) 140 mmol/L 11/07/25, 10:48 Potassium, (3.5-5.1) 3.8 mmol/L 11/07/25, 10:48 BUN, (7-25) 15 mg/dL 11/07/25, 10:48 Creatinine, (0.60-1.20) 0.76 mg/dL 11/07/25, 10:48 Glucose, (70-100) 94 mg/dL 11/07/25, 10:48 Est GFR (CKD-EPI) > 60.0 mL/Min 11/07/25, 10:48 Calcium, (8.6-10.3) 9.4 mg/dL 11/07/25, 10:48 Total Bilirubin, (0.3-1.0) 0.3 mg/dl 11/07/25, 10: 48 AST, (13-39) 20 U/L 11/07/25, 10:48 ALT, (7-52) 14 U/L 11/07/25, 10:48 Alkaline Phosphatase, (34-104) 58 U/L 11/07/25, 10:48 Iron, (50-212) 98 ug/dL 11/07/25, 10:48 Iron Saturation, (20-50) 27.5 % 11/07/25, 10:48 Ferritin, (11.0-306.8) 92.8 ng/mL 11/07/25, 10:48 Total Protein, (6.4-8.9) 7.2 gm/dL 11/07/25, 10:48 Albumin, (3.5-5.7) 4.3 gm/dL 11/07/25, 10:48 Social Determinants of Health Screening SDOH last assessed in clinic: 11/10/25 Will the patient participate in the screening?: Yes Do you worry about having a steady place to live?: No In the past 12 months, have you had to go without electric, gas, oil, or water in your home?: No Have you or anyone in your house had to go without enough food to eat?: No Has lack of reliable transportation kept you from medical appointments or from doing things needed for daily living?: No Has anyone in your support network made you feel unsafe for any reason?: No Does the patient want assistance with any of the above?: No Dictated By: Ariadna Gonzalez MD DD/ [id number] Signed By: <Electronically signed by Ariadna Gonzalez MD> 11/10/25 1047
[2025-11-21 15:42] VITALS: BP 98/53; PULSE 105; TEMP 36.9; O2SAT 91; BMI 20.5
--- NOTE | 2025-11-21 15:47 | XR_ITS ---
[facility] [place] [id number] Patient Name: MACARIO WOOTEN MRN: [id number] date: 1950 Sex: F Assigned Patient Location: ED.MAIN Current Patient Location: ED.MAIN Accession/Order Number: [id number] Exam Date: 11/21/2025 16:28 Report Date: 11/21/2025 16:57 At the request of: MARIAMA POLK MD Procedure: XR ribs LT min 3V w CXR1V XR ribs LT min 3V w CXR1V 11/21/2025 4:41 PM SIGNS AND SYMPTOMS: ^c/o left rib pain with injury. harsh cough PROTOCOL: Frontal radiograph of the chest with oblique radiographs of the left ribs COMPARISON: None FINDINGS: The trachea is midline. Atherosclerotic changes are noted in the thoracic aorta. The heart and mediastinal structures are within normal limits. The lung parenchyma is clear. There is a minimally displaced fracture of the lateral aspect of the left seventh rib. XR/XR ribs LT min 3V w CXR1V IMPRESSION: There is a minimally displaced fracture of the lateral aspect of the left seventh rib. Impression dictated by: Giuliano Shore M.D. 11/21/2025 4:57 PM Dictation Location: [place] [address] Electronically authenticated by: [id number] Y Date: 11/21/2025 16:57
--- NOTE | 2025-11-21 16:53 | ED.GENADUL1 ---
HPI HPI - General Adult General Chief complaint: Chest Pain Stated complaint: RIB PAIN Time Seen by Provider: 11/21/25 16:19 Source: patient Mode of arrival: walk-in Limitations: no limitations History of Present Illness HPI narrative: 75-year-old female presents to the emergency department with complaint of rib pain. Onset was yesterday. Locating to the posterior lateral, mid to lower ribs. Pain worse with deep breath, movement, palpation. Denies shortness of breath, states it only hurts to breathe. Denies any known injury. She has had a congested cough since yesterday as well. Denies any fever, chills, productive sputum. Quality:?as above Severity:?moderate Timing:?as above Context: Normal setting and activity? Modifying factors:?as above Associated symptoms: as above Related Data Previous Rx's ?Medication ?Instructions ?Recorded lidocaine 5 % topical patch 1 patch topical Q24H PRN pain #15 11/21/25 (Lidoderm) ea tramadol 50 mg tablet 50 mg PO TID PRN pain 3 days #10 11/21/25 tabs Allergies Allergy/AdvReac Type Severity Reaction Status Date / Time moxifloxacin (From Avelox) Allergy Severe Anaphylaxis Verified 11/21/25 15:42 Opioid HPI Opioid Management Most Recent Opioid Data: Last Pain Scale 7 Today, 17:05 Last MAR Pain Assessment Today, 17:05 Review of Systems ROS Narrative CONST: Denies fever, chills HENT: + congestion. Denies sore throat RESP: + cough. Denies shortness of breath CV: Denies palpitations GI: Denies abd pain, nausea, vomiting MS: Denies myalgias SKIN: Denies color change, rash NEURO: Denies numbness, weakness PSYCHIATRIC: Denies confusion, agitation PFSH PFSH Social History Little interest or pleasure in doing things: not at all Feeling down, depressed, or hopeless: not at all Exam Narrative Exam Narrative: Vital signs reviewed Nurses notes noted CONST: Nontoxic, uncomfortable appearing, well nourished, in no distress.? No diaphoresis.?? HENT: normocephalic, atraumatic, moist mucous membrane, no abnormalities of the nose noted, hearing normal EYES: normal appearing conjunctiva, no apparent discharge bilat NECK: normal appearance CV: normal rate, regular rhythm, no murmur RESP: normal effort, speaking in complete sentences. Lung sounds clear and equal bilat.? No wheezes, rales, rhonchi CHEST: + tenderness over the left posterior/lateral 9-12 ribs. No erythema, rash noted. GI: soft, no distension, nontender : no CVA tenderness MS: no edema, tenderness SKIN: no pallor NEURO: A&Ox 3, no focal findings PSYCH: normal mood, affect Constitutional Vital Signs, click to edit/add: Last Vital Signs Temp 98.4 F 11/21/25 15:42 Pulse 64 11/21/25 17:53 Resp 18 11/21/25 17:53 BP 96/50 11/21/25 17:53 Pulse Ox 96 11/21/25 17:53 O2 Del Method Room Air 11/21/25 17:53 Course Reevaluation(s) Reevaluation #1: Pain improved after treatment. Discussed with patient results, plan, and disposition. She is agreeable. Time: 17:33 Vital Signs Vital signs: Vital Signs Temperature 98.4 F 11/21/25 15:42 Pulse Rate 105 H 11/21/25 15:42 Respiratory Rate 16 11/21/25 15:42 Blood Pressure 98/53 11/21/25 15:42 Pulse Oximetry 91 L 11/21/25 15:42 Oxygen Delivery Method Room Air 11/21/25 15:42 Temperature 98.4 F 11/21/25 15:42 Pulse Rate 64 11/21/25 17:53 Respiratory Rate 18 11/21/25 17:53 Blood Pressure 96/50 11/21/25 17:53 Pulse Oximetry 96 11/21/25 17:53 Oxygen Delivery Method Room Air 11/21/25 17:53 Medical Decision Making [facility] Narrative Medical decision making narrative: This is a pleasant 75-year-old female who presents to the emergency department for evaluation of posterior lateral rib pain, cough On arrival, afebrile, vitals stable, not hypoxic Exam, nontoxic, somewhat uncomfortable appearing patient in no distress. Heart regular rate and rhythm. Lung sounds clear and equal bilaterally. She has tenderness in the region of her 9th through 12th posterior lateral ribs on the left. No rash Left ribs and chest x-ray imaging, per radiologist reveals Patient was given dose of Ultram and Tylenol Left ribs and chest x-ray imaging, per radiologist reveals nondisplaced seventh rib fracture. Favor chest wall pain secondary to rib fracture Pneumothorax, pneumonia less likely based on imaging Re-Evaluation See ED course Disposition ? The patient was discharged. Prescriptions sent to pharmacy:ultram, lidoderm patches Plan: Patient will be discharged to home.? Condition at time of disposition: stable, improved.? Advised to follow up with primary provider. Advised to return for any worsening and/or development of new, concerning signs or symptoms PLEASE NOTE: Portions of the medical record may have been produced using electronic psychology instructor and may contain errors with respect to translation of words which may not have been identified prior to finalization of the chart. Imaging Data Chest x-ray: Radiologist's impression: ITS Impressions Ribs X-Ray 11/21/25 15:47 IMPRESSION: There is a minimally displaced fracture of the lateral aspect of the left seventh rib. Impression dictated by: Giuliano Shore M.D. 11/21/2025 4:57 PM Dictation [facility] Electronically authenticated by: [id number] Y Date: 11/21/2025 16:57 Discharge Plan Discharge Chief Complaint: Chest Pain Clinical Impression: Fracture of left seventh rib Cough Qualifiers: Cough type: acute Qualified Code(s): R05.1 - Acute cough Patient Disposition: Home, Self-Care Time of Disposition Decision: 17:35 Condition: Good Mode of Transportation: Private Vehicle Prescriptions / Home Meds: New tramadol 50 mg tablet 50 mg PO TID PRN (Reason: pain) 3 Days Qty: 10 0RF lidocaine [Lidoderm] 5 % adhesive patch,medicated 1 patch topical Q24H PRN (Reason: pain) Qty: 15 0RF Rx Instructions: leave on most painful area for up to 12 hrs Print Language: Yoruba Instructions: Rib Fracture (ED) Referrals: Marcus Nelson MD [Physician, Family Practice] - 1 week Discharge Date/Time: 11/21/25 17:57
--- OUTSIDE RECORDS SUMMARY | 2025-11-21 16:53 | XMS_ITS | Clinical Summary ---
Author Organization [facility] Address [address] [place] [address] Care Team Providers Care Incident Manager Name Role Phone Naheed Thompson DO Primary Care Provider [phone]- [phone] Allergies Active AllergyReactionsCriticalityNoted DateCommentsMoxifloxacin HclAnaphylaxis, Cacpxwk6407/21/20186674GokqwpwzjhgoKjmqcneuyjnPmjo41/02/2018 Medications MedicationSigDispense QuantityRefillsLast FilledStart DateEnd DateStatus meloxicam (MOBIC) 15 mg tablet Take 15 mg by mouth once daily.Active tiotropium (SPIRIVA) 18 mcg inhalation capsule Inhale 18 mcg as instructed once daily.Active omeprazole (PRILOSEC) 20 mg capsule Take 20 mg by mouth once daily.Active zolpidem (AMBIEN) 10 mg tab Take 10 mg by mouth at bedtime as needed.Active gabapentin (NEURONTIN) 300 mg capsule Take 300 mg by mouth twice daily.Active albuterol (PROVENTIL) 2.5 mg /3 mL (0.083 %) nebulizer solution Inhale 2.5 mg as instructed.Active traZODone (DESYREL) 50 mg tablet Take 100 mg by mouth daily at bedtime.12/20/2019Active rOPINIRole (REQUIP) 1 mg tablet Take 1 mg by mouth daily at bedtime.Active metoprolol tartrate (LOPRESSOR ORAL) Take 50 mg by mouth twice daily.Active montelukast (SINGULAIR) 10 mg tablet once daily.07/16/2023ctive dicyclomine (BENTYL) 20 mg tablet Take 1 tablet by mouth two times a day. 60 tablet 501/08/2026Active Aspirin 81 mg tab Take 81 mg by mouth once daily.Active budesonide, enteric coated (ENTOCORT EC) 3 mg 24 hr capsule Take 3 capsules by mouth once daily. 270 capsule 5Active colestipol (COLESTID) 1 gram tablet Take 2 tablets by mouth once daily. 60 tablet 6Active Active Problems ProblemNoted DateDiagnosed DateMalignant neoplasm of anus10/05/2018Carcinoma in situ of anus and anal canal07/24/2018COPD (chronic obstructive pulmonary disease)GERD (gastroesophageal reflux disease) Resolved Problems ProblemNoted DateDiagnosed DateResolved VwqzStltlhdh38/26/202306/ Encounters DateTypeDepartmentCare OlnzWcnjuvbiqse57/12/2025Results Follow-Up [facility] End[facility] [address] [place] [place] [address] Matthew Carrera Jr., DO Follow Up10/03/2025 10:47 AM ESTAnesthesia Event [facility] [place] [address] [place] [address] Ivelisse Dhillon, BINGO CALLER.RN NEW GRAD 10/03/2025 10:08 AM EST - 10/03/2025 11:59 PM ESTHospital Encounter [facility] [address] [place] [address] [place] [address] Matthew Carrera Jr., DO Nataliia Peralta, Ivelisse Mahan, BINGO CALLER.RN NEW GRAD Irritable bowel syndrome with both constipation and diarrhea [K58.2] Discharge Disposition: Home10/03/20257912Pjehsv09/23/2025GI Preprocedure Call [facility] [address] [place] [place] [address] Matthew Carrera Jr., DO 09/05/2025Telephone Gastroenterology [address] [place] [address] Matthew Carrera Jr., DO patient update/kuoyczvl64/10/2025 11:59 PM EDTAnesthesia Event [facility] [address] [place] [address] [place] [address] Ivelisse Dhillon, BINGO CALLER.RN NEW GRAD 09/02/2025 10:35 AM EDT - 09/02/2025 11:59 PM EDTHospital Encounter Radiology [address] [place] [address] Generalized abdominal pain [R10.84] Discharge Disposition: Home09/02/2025 10:00 AM EDTOffice Visit Gastroenterology [address] [place] [address] Matthew Carrera Jr., DO Irritable bowel syndrome with both constipation and diarrhea (Primary Dx); Generalized abdominal pain; History of small bowel obstruction; History of anal gdkfjl7509/02/2025Results Follow-Up Gastroenterology [address] [place], [place] [id number] Matthew Carrera Jr., DO 09/02/2025Radiology Radiology [address] [place] [address] Denisha Castro, RT(R) Radio Gen RMP1Travelfrom Last 3 Months Family History Medical HistoryRelationCommentsCancerMaternal AuntCervical CancerCancerMother Cervical CancerRelationStatusCommentsMaternal AuntMother Social History Tobacco UseTypesPacks/DayYears UsedDateSmoking Tobacco: Every DayCigarettes1.947 Started: 08/30/1973; Last attempted to quit: 08/30/2018Smokeless Tobacco: Never Tobacco Cessation:Ready to Q uit: Not Asked; Counseling Given: Not Answered Alcohol UseStandard Drinks/WeekCommentsNo0 (1 standard drink = 0.6 oz pure alcohol)PHQ-2AnswerDate RecordedPHQ-2 lnhsh50801/26/2020Area Deprivation Index AnswerDate RecordedNational Score (1-100), lower number is lower risk62 06/24/2023State Score (1-10), lower number is lower cnpb7203Data from: https://www.neighborhoodatlas.medicine.[facility].edu/. Last address used for [address]CommentsNoSex and Gender Information ValueDate RecordedSex Assigned at BirthNot on fileLegal InqUdcnrb96/28/2018 8:40 AM EDTGender IdentityNot on fileSexual OrientationNot on fileOccupationIndustry Job Start DateJob End DateRetiredNot on fileNot on fileNot on file Last Filed Vital Signs Vital SignReadingTime TakenCommentsBlood Bjifswbj228/4910/03/2025 11:30 AM EST Khyhc107310/03/2025 11:30 AM SLTHrxhrooqjae72.1 ??C (98.8 ??F)10/03/2025 10:36 AM ESTRespiratory Vuzh947412/03/2024 11:15 AM ESTOxygen Xueuyrjeex67%10/03/2025 11:30 AM ESTInhaled Oxygen Concentration--Qetsct99.9 kg (110 lb)10/03/2025 10:36 AM QAAVtpzvs568.5 cm (5' 2 )10/03/2025 10:36 AM ESTBody Mass Index20.12112/03/2024 10:36 AM EST Plan of Treatment DateTypeDepartmentCare Team (Latest Contact Info)Obaazvupoaz17/30/2026 10:40 AM ESTOffice Visit Gastroenterology [address] [place], [place] [address] Matthew Carrera Jr., DO [address] [facility] [address] [place] [address] Return in about 16 weeksHealth MaintenanceDue DateLast DoneCommentsAnnual PCP Team Chronic Disease Visit1970Anxiety Zntgaoeuj72/12/1970Depression Dupejibzg08/12/1970Hepatitis C Ldcvvqmow19/12/1970DTaP,Tdap,Td Vaccine (1 - Tdap)1971Mammogram Lcudrbqey50/12/1992CT Ilgbxtwbegez33/12/1997Cologuard (FIT-DNA)1997Fecal Occult Blood04/04/19973473Zdlgofnuykhxs72/12/1997Lung Cancer Mbtxcdqvq42/12/2002Bone Density Pciintyub05/12/2017Shingrix Vaccine (2 of 2)11/30/dvance Directive Bzzfjodwae60/01/2025Medicare Advantage Annual Wellness Visit11/24/2024Lipid Vmwjuyhsk28/17/30922801/10/2020Covid-19 Vaccine ( season)51, 08/28/2023, 08/22/2022, Additional history existsDiabetes Ojwbnuxec25, 01/16/2024, 01/10/2020, Additional history yrwpliMfyxpukczbg01, 05/19/2023, 06/17/2018Colorectal Cancer Ilimlutas92/10/2030Pneumococcal Vaccine: 50+Zsqytgzqd64/12/2022, 11/04/2022, 09/08/2017RSV WoijnrbMrtojdwke93/05/2023 Influenza WpmzfmjYnsyhynyg10/24/2025, 09/03/2024, 08/28/2023, Additional history exists Procedures Procedure NamePriorityDate/TimeAssociated DiagnosisCommentsSURGICAL PATHOLOGY Ppmiqnh8410/03/2025 11:07 AM EST Irritable bowel syndrome with both constipation and diarrhea Generalized abdominal pain History of small bowel obstruction History of anal cancer COLONOSCOPY GAMPZFRVHKPfijyuv13/10/2025 10:39 AM EST Irritable bowel syndrome with both constipation and diarrhea Generalized abdominal pain History of small bowel obstruction History of anal cancer XR ACUTE ABD SERIES 3V (2V ABD/1V CXR)Sktrjqu2909/02/2025 10:42 AM EDT Generalized abdominal pain History of small bowel obstruction COMPREHENSIVE METABOLIC KDKWGWfayhxn12/14/2025 1:33 PM EDT Weight loss Diarrhea, unspecified type LIPID PANEL, BILUAFZOxxqzhy22/17/2020 1:13 PM EST Subclavian arterial stenosis (HCC) from Last 3 Months or Most Recently Relevant to Health Maintenance Results * SURGICAL PATHOLOGY (10/03/2025 11:07 AM EST)ComponentValueRef RangeTest Method Analysis TimePerformed AtPathologist SignatureCase ReportSurgical Pathology Report ? Case: [id number] ? Authorizing Provider: ??Matthew Carrera Jr., DO ? Collected: ? 10/03/2025 11:07 AM ? Ordering Location: ? [facility]oscopy Received: ?10/03/2025 09:14 PM ? [facility] ? Pathologist: ? Jamila Lewis MD ? Specimen: ?Colon, Biopsy, random colon r/o microscopic colitis ? 10/05/2025 12:55 PM [facility] MA[facility] LABFINAL DIAGNOSISA. Colon, biopsy - Colonic mucosa with no significant histopathologic changes.10/05/2025 12:55 PM [facility] at 1255 ESTGross DescriptionA. Colon, Biopsy Received in formalin is one piece of nelson-brown, soft tissue measuring 0.4 x 0.2 x 0.1 cm. Totally submitted in one cassette. DL October 04, 2025 1:40 AM Gross examination performed at [facility], [address] [place] [address], [place], [place] [address]/05/2025 12:55 PM [facility] LABClinical HistoryAssociated Diagnoses: K58.2 - Irritable bowel syndrome with both constipation and diarrhea R10.84 - Generalized abdominal pain Z87.19 - History of small bowel obstruction Z85.048 - History of anal cancer 10/05/2025 12:55 PM [facility] LABPerforming LabDiagnostic interpretation performed at: [facility], [address] [place] [address] [id number] CLIA# [id number] Senior Sales Associate: Yuri Spencer MD 10/05/2025 12:55 PM [facility] LABDisclaimerLaboratory Developed Test (LDT) Disclaimer: Performance characteristics of immunohistochemical, immunofluorescent, and chromogenic in-situ hybridization tests have been determined by the performing laboratory within the [facility] Department of Pathology and Laboratory Medicine ([facility], [facility], [facility], , [facility], [facility], or [facility]) in a manner consistent with CLIA requirements. One or more of these tests may not have been cleared or approved by the FDA. The [facility] Department of Pathology and Laboratory Medicineis regulated under CLIA as qualified to perform high-complexity testing. These tests are used for clinical purposes. These should not be regarded as investigational or for research. Positive and negative controls stain appropriately.10/05/2025 12:55 PM EST [facility] LABSpecimen (Source)Anatomical Location / Laterality Collection Method / VolumeCollection TimeReceived TimeTissueCOLONIC BIOPSY SPECIMEN / Bujfeim0210/03/2025 11:07 AM EST10/03/2025 9:14 PM EST Narrative Authorizing ProviderResult TypeResult StatusDavid Silke Carrera Jr., DOSURGICAL PATHOLOGYFinal ResultPerforming OrganizationAddressCity/State/ZIP CodePhone Number [address] [address], * COLONOSCOPY DIAGNOSTIC (10/03/2025 10:39 AM EST)Anatomical RegionLaterality ModalityOtherSpecimen (Source)Anatomical Location / LateralityCollection Method / VolumeCollection TimeReceived Time10/03/2025 10:39 AM EST Narrative 10/03/2025 11:20 AM EST [facility] Patient Name: Hillary Gunn Procedure Date: 10/03/2025 10:39 AM Date of : 1950 Admit Type: Outpatient Age: 75 Gender: Female Note Status: Finalized Attending MD: Matthew Carrera Jr , DO, [id number] Procedure: ? Colonoscopy Indications: ? Abdominal pain in the left lower quadrant, ? Diarrhea, Personal history of malignant neoplasm of ? the anal canal Providers: ? Matthew Carrera Jr, DO Patient Profile: ? This is a 75 year old female. Refer to note in ? patient chart for documentation of history and ? physical. Last Colonoscopy: 2 years ago. Referring Physician: ?? Matthew Carrera Jr, DO (Referring MD) Medicines: ? Propofol per Anesthesia, Monitored Anesthesia Care Complications: ? No immediate complications. Requesting Provider: ?? Procedure: ? Pre-Anesthesia Assessment: ? - Prior to the procedure, a History and Physical ? was performed, and patient medications and ? allergies were reviewed. The patient's tolerance of ? previous anesthesia was also reviewed. The risks ? and benefits of the procedure and the sedation ? options and risks were discussed with the patient. ? All questions were answered, and informed consent ? was obtained. Prior Anticoagulants: The patient has ? taken no anticoagulant or antiplatelet agents. ASA ? Grade Assessment: III - A patient with severe ? systemic disease. After reviewing the risks and ? benefits, the patient was deemed in satisfactory ? condition to undergo the procedure. ? After I obtained informed consent, the scope was ? passed under direct vision. Throughout the ? procedure, the patient's blood pressure, pulse, and ? oxygen saturations were monitored continuously. The ? Colonoscope was introduced through the anus and ? advanced to the terminal ileum, with identification ? of the appendiceal orifice and IC valve. The ? colonoscopy was performed without difficulty. The ? patient tolerated the procedure well. The quality ? of the bowel preparation was adequate. The entire ? colon was examined. The terminal ileum, ileocecal ? valve, appendiceal orifice, and rectum were ? photographed. Scope Withdrawal Time: 0 hours 16 minutes 5 seconds Total Procedure Duration: 0 hours 19 minutes 30 seconds Findings: ? The terminal ileum appeared normal. ? A few medium-mouthed diverticula were found in the sigmoid colon. ? Normal mucosa was found in the entire colon. Biopsies for histology ? were taken with a cold forceps from the entire colon for evaluation ? of microscopic colitis. ? The mucosa vascular pattern at the anus and perinal anal area was ? diffusely increased secondary to previous radiation for anal cancer ? without evidence of recurrence. Moderate Sedation: ? MAC anesthesia was administered by the anesthesia team. Impression: ?- The examined portion of the ileum was normal. ? - Diverticulosis in the sigmoid colon. ? - Normal mucosa in the entire examined colon. ? Biopsied. ? - Increased mucosa vascular pattern at the anus and ? perianal area secondary to radiation for anal ? cancer without evidence of recurrence. Recommendation: ?- Discharge patient to home. ? - Resume regular diet. ? - Continue present medications. ? - Await pathology results. ? - Repeat colonoscopy in 5 years for surveillance. ? - Patient has a contact number available for ? emergencies. The signs and symptoms of potential ? delayed complications were discussed with the ? patient. Return to normal activities tomorrow. ? Written discharge instructions were provided to the ? patient. Procedure Code(s): ? --- Professional --- ? 27781, Colonoscopy, flexible; with biopsy, single ? or multiple Diagnosis Code(s): ? --- Professional --- ? R10.32, Left lower quadrant pain ? R19.7, Diarrhea, unspecified ? Z85.048, Personal history of other malignant ? neoplasm of rectum, rectosigmoid junction, and anus ? K57.30, Diverticulosis of large intestine without ? perforation or abscess without bleeding CPT copyright 2020 [employer] [employer]. All rights reserved. The codes documented in this report are preliminary and upon asset coordinator review may be revised to meet current compliance requirements. Attending Participation: ? I personally performed the entire procedure. MD Matthew Ahn Jr, 10/03/2025 11:17:47 AM This report has been signed electronically by Matthew Carrera Jr, DO Number of Addenda: 0 Note Initiated On: 10/03/2025 10:39 AM Procedure Start: 10:50:42 AM Procedure End: 11:10:12 AM Authorizing ProviderResult TypeResult StatusDavimodesta Carrera Jr., DODIGESTIVE DISEASEFinal Result * XR ACUTE ABD SERIES 3V (2V ABD/1V CXR) (09/02/2025 10:42 AM EDT)Anatomical RegionLateralityModalityAbdomenOtherSpecimen (Source)Anatomical Location / LateralityCollection Method / VolumeCollection TimeReceived Time09/02/2025 10:42 AM EDT Impressions 09/02/2025 2:08 PM EDT IMPRESSION: No obstruction or free air seen. Possible right renal stone. Steel Welder: MARK ?? Transcribe Date/Time: Sep 02 2025 ??2:05P Dictated by : CHARLIE MARRUFO MD This examination was interpreted and the report reviewed and electronically signed by: CHARLIE MARRUFO MD on Sep 02 2025 ??2:06PM ??EST Narrative 09/02/2025 2:08 PM EDT * * *Final Report* * * DATE OF EXAM: Sep 02 2025 10:42AM ?? SVX ?? 5359 ??- ??XR ACUTE ABD SERIES 2V ABD+CXR ??/ PROCEDURE REASON: multiple diagnoses ? * * * * Physician Interpretation * * * * EXAMINATION: Abdominal series Clinical History: ??Generalized abdominal pain History of small bowel obstruction M: ??XC1_4 Comparison: ??No prior similar exam is available for comparison TECHNIQUE: Upright chest and supine and upright abdomen. RESULT: Lines, tubes, and devices: ??None are seen. Bowel Gas Pattern: ??Bowel gas pattern unremarkable. ??No free air is visualized. Calcifications: ??A possible right renal calculus in the mid to upper right kidney measuring 2.5 mm in size. Other: ??No additional findings Slight interstitial prominence in the chest with no consolidation seen. ?? Cardiac silhouette within normal limits Procedure Note Provider, [facility] [place] - 09/02/2025 * * *Final Report* * * DATE OF EXAM: Sep 02 2025 10:42AM SVX 5359 - XR ACUTE ABD SERIES 2V ABD+CXR / PROCEDURE REASON: multiple diagnoses * * * * Physician Interpretation * * * * EXAMINATION: Abdominal series Clinical History: Generalized abdominal pain History of small bowel obstruction M: XC1_4 Comparison: No prior similar exam is available for comparison TECHNIQUE: Upright chest and supine and upright abdomen. RESULT: Lines, tubes, and devices: None are seen. Bowel Gas Pattern: Bowel gas pattern unremarkable. No free air is visualized. Calcifications: A possible right renal calculus in the mid to upper right kidney measuring 2.5 mm in size. Other: No additional findings Slight interstitial prominence in the chest with no consolidation seen. Cardiac silhouette within normal limits IMPRESSION IMPRESSION: No obstruction or free air seen. Possible right renal stone. Steel Welder: PSCB Transcribe Date/Time: Sep 02 2025 2:05P Dictated by : CHARLIE MARRUFO MD This examination was interpreted and the report reviewed and electronically signed by: CHARLIE MARRUFO MD on Sep 02 2025 2:06PM EST Authorizing ProviderResult TypeResult StatusDavimodesta Carrera Jr., DORAD-PAMAFinal Result * (ABNORMAL) COMPREHENSIVE METABOLIC PANEL (02/04/2025 1:33 PM EDT)Component ValueRef RangeTest MethodAnalysis TimePerformed AtPathologist Signature Protein, Total7.16.3 - 8.0 g/dL02/04/2025 11:26 PM [facility] LABAlbumin4.23.9 - 4.9 g/dL02/04/2025 11:26 PM [facility] LABCalcium, Total9.48.5 - 10.2 mg/dL02/04/2025 11:26 PM [facility] LABBilirubin, Total0.30.2 - 1.3 mg/dL02/04/2025 11:26 PM [facility] LABAlkaline Uiqjnuugfnj2570 - 123 U/L 02/04/2025 11:26 PM [facility] EVANFJ7371 - 35 U/L 02/04/2025 11:26 PM [facility] BBATGM372 - 38 U/L 02/04/2025 11:26 PM [facility] ULFKjwmewh496(H)74 - 99 mg/dL02/04/2025 11:26 PM [facility] LABComment: The [place] [employer] (ADA) provides guidance for cutoff values for fasting glucose andrandom glucose. The ADA defines fasting as no caloric intake for at least 8 hours. Fasting plasma glucose results between 100 to 125 mg/dL indicate increased risk for diabetes (prediabetes). Fasting plasma glucose results greater than or equal to 126 mg/dL meet the criteria for diagnosis of diabetes. In the absence of unequivocal hyperglycemia, results should be confirmed by repeat testing. In a patient with classic symptoms of hyperglycemia or hyperglycemic crisis, random plasma glucose results greater than or equal to 200 mg/dL meet the criteria for diagnosis of diabetes. Reference: Standards of Medical Care in Diabetes 2016, [place] [employer]. Diabetes Care. 2016.39(Suppl 1). HNS376 - 21 mg/dL02/04/2025 11:26 PM [facility] LAB Creatinine0.710.58 - 0.96 mg/dL02/04/2025 11:26 PM [facility] FDJGjtssf060634 - 144 mmol/L02/04/2025 11:26 PM [facility] LABPotassium4.63.7 - 5.1 mmol/L02/04/2025 11:26 PM [facility] QJVSlqkuwzl42675 - 107 mmol/L02/04/2025 11:26 PM [facility] YKBDS25293 - 30 mmol/L02/04/2025 11:26 PM [facility] LABAnion Xhr038 - 15 mmol/L02/04/2025 11:26 PM [facility] LABEstimated Glomerular Filtration Rate90>=60 mL/min/1.73m 02/04/2025 11:26 PM [facility] LABComment:Estimated Glomerular Filtration Rate (eGFR) is calculated using the 2020 CKD-EPI creatinine equation. This equation utilizes serum creatinine, sex, and age as parameters. The creatinine assay has traceable calibration to isotope dilution- mass spectrometry. Refer to KDIGO guidelines for clinical interpretation. In patients with unstable renal function, e.g. those with acute kidney injury, the eGFRmay not accurately reflect actual GFR.Specimen (Source)Anatomical Location / LateralityCollection Method / VolumeCollection TimeReceived TimeBloodBLOOD SPECIMEN / UnknownVenipuncture / Vfxmhws8302/04/2025 1:33 PM EDT02/04/2025 1:34 PM EDT Narrative Authorizing ProviderResult TypeResult StatusDavimodesta Carrera Jr., DOLABORATORYFinal ResultPerforming OrganizationAddressCity/State/ZIP CodePhone Number [facility] [address] [phone], * (ABNORMAL) LIPID PANEL BASIC (01/10/2020 1:13 PM EST)ComponentValueRef Range Test MethodAnalysis TimePerformed AtPathologist SignatureCholesterol, Btfev942 (H)<200 mg/dL01/10/2020 2:04 PM [facility] FtngskprmwPdjmmjisdmne369(H) <150 mg/dL01/10/2020 2:04 PM [facility] LaboratoryHDL Wyfulxmttol66>39 mg/dL01/10/2020 2:04 PM [facility] LaboratoryLDL Cholesterol, Calculated 123(H)<100 mg/dL01/10/2020 2:04 PM [facility] LaboratoryComment: <100 mg/dL, Optimal 100-129 mg/dL, Near optimal/above optimal 130-159 mg/dL, Borderline high 160-189 mg/dL, High >189 mg/dL, Very high Secondary prevention optimal LDL Cholesterol levels are recommended to be < 70 mg/dL Non HDL Zyciufgmykk880(H)<130 mg/dL01/10/2020 2:04 PM [facility] LaboratoryComment: <130 mg/dL, Optimal 130-159 mg/dL, Near optimal/above optimal 160-189 mg/dL, Borderline high 190-219 mg/dL, High >219 mg/dL, Very high Secondary prevention optimal non HDL Cholesterol levels are recommended to be < 100 mg/dL Fasting Dpfd42hfy25/17/2020 1:15 PM [facility] LaboratoryVLDL Cholesterol 68(H)<30 mg/dL01/10/2020 2:04 PM [facility] LaboratoryTC:HDL Ratio5.44(H) <5.1002 2:04 PM [facility] LaboratoryLDL:HDL Ratio2.86(H)<2.54 01/10/2020 2:04 PM [facility] LaboratoryComment: Reference: 1. National Cholesterol Education Program ATP III Guideline At-A-Glance Quick Desk Reference: National Heart, Lung, and Blood [place]. National Institutes of Health. 2001: NIH Publication No. 01-3305. 2. An International Atherosclerosis Society position paper: global recommendations for the management of dyslipidemia: executive summary, Atherosclerosis. 2014: 232(2):410-413. Specimen (Source)Anatomical Location / LateralityCollection Method / Volume Collection TimeReceived TimeBlood specimen (specimen)BLOOD SPECIMEN / Unknown 01/10/2020 1:13 PM EST01/10/2020 1:15 PM EST Narrative Authorizing ProviderResult TypeResult StatusHarandrew Sherman MDLABORATORYFinal ResultPerforming OrganizationAddressCity/State/ZIP CodePhone Number [facility] [address] [place] [address], [facility] from Last 3 Months or Most Recently Relevant to Health Maintenance Insurance Care Teams Team MemberRelationshipSpecialtyStart DateEnd Date Naheed Thompson DO [address] [place] [address] [facility] - [facility]
--- OUTSIDE RECORDS SUMMARY | 2025-11-21 16:53 | XMS_ITS | Clinical Summary ---
Author Organization [facility] Address [address] [place] [address] Care Team Providers Care Debt Collection Specialist Name Role Phone Unavailable Primary Care Provider Unavailabl e Social History Tobacco UseTypesPacks/DayYears UsedDateSmoking Tobacco: Never AssessedUT Safety & EnvironmentAnswerDate RecordedFear of Current or Ex-PartnerNot on file 01/15/2024Emotionally AbusedNot on file4Physically AbusedNot on file 01/15/2024Sexually AbusedNot on file01/15/2024hysically or Sexually AbusedNot on file01/15/2024CommentsUnknownSex and Gender InformationValueDate RecordedSex Assigned at BirthNot on fileLegal YaiKxwrlf14/29/2022 10:06 PM EDT Gender IdentityNot on fileSexual OrientationNot on file Plan of Treatment Not on file
--- OUTSIDE RECORDS SUMMARY | 2025-11-21 16:53 | XMS_ITS | Clinical Summary ---
Author Organization [facility] tem Address [id number] [address] [place] [address] Care Team Providers Care Dress Marker Name Role Phone Giuliano Castelan MD Primary Care Provider [phone] Allergies Active AllergyReactionsCriticalityNoted DateCommentsMoxifloxacinAnaphylaxisHigh 11/25/2017 Medications MedicationSigDispense QuantityRefillsLast FilledStart DateEnd DateStatus tiotropium (SPIRIVA) [address] inhalation capsule Place 1 capsule into inhaler and inhale once daily.Active mometasone-formoterol (DULERA 100) 100-5 mcg/actuation inhaler Inhale 2 puffs 2 (two) times a day.Active meloxicam (MOBIC) 15 mg tablet Take 15 mg by mouth daily.Active zolpidem (AMBIEN) 10 mg tablet Take 10 mg by mouth nightly as needed for sleep.Active gabapentin (NEURONTIN) 300 mg capsule Take 300 mg by mouth 2 (two) times a day.Active omeprazole (PriLOSEC) 20 mg capsule Take 20 mg by mouth daily.Active azithromycin (ZITHROMAX Z-MILE) 250 mg tablet Take 2 tablets the first day then 1 tablet every day for 4 days. 6 tablet 08/21/2018Active Active Problems No known active problems Social History Tobacco UseTypesPacks/DayYears UsedDateSmoking Tobacco: Every DayCigarettes0.5 Last attempted to quit: 11/25/2012Smokeless Tobacco: Never Comments:starting again 06/12 18 Alcohol UseStandard Drinks/WeekCommentsNo0 (1 standard drink = 0.6 oz pure alcohol)ChildcareAnswerDate NloixvheZojsgtqmgBzjhidt31/12/2019EmploymentAnswer Date DotubmetMbwvrlwjgxExclkis51/12/2019Purpose - LifeAnswerDate RecordedPurpose and direction in ywtuMetvlhs24/11/2021CommentsNoSex and Gender InformationValueDate RecordedSex Assigned at BirthNot on fileLegal SexFemale 06/29/2015 11:41 AM EDTGender IdentityNot on fileSexual OrientationNot on file Last Filed Vital Signs Vital SignReadingTime TakenCommentsBlood Wrcucfls546/5409 5:03 PM EDT Nvcqk24097/28/2018 5:03 PM EEKVwxcfvhmnhc66.4 ??C (97.6 ??F)08/21/2018 12:50 PM EDTRespiratory Pbyz348708/21/2018 5:03 PM EDTOxygen Oiqikgopkl53%08/21/2018 5:03 PM EDTInhaled Oxygen Concentration--Qudkrc43.8 kg (145 lb)08/21/2018 12:50 PM KYYWfphom206 cm (5' 3 )08/21/2018 12:50 PM EDTBody Mass Index25.69008/21/2018 12:50 PM EDT Plan of Treatment Health MaintenanceDue DateLast DoneCommentsDepression Zvcmsmjzb12/12/1964Tobacco Rsnnmlbza65/12/1964Adult BMI Fonuoyial48/12/1970DTaP,Tdap and Td Vaccines (1 - Tdap)1971Fall Risk Qdnyhllqt20/12/2017Zoster (Shingles) Vaccine (2 of 2) OVID-19 Vaccine ( - season)51, 08/22/2022, 08/22/2022, Additional history existsInfluenza Cwhihnc3207/25/2025 08/28/2023, 08/26/2022, 08/21/2022, Additional history existsRSV ( or age 60+ yrs)Odwsxtwdk37/05/2023 Medical Devices Not on file Insurance Care Teams Team MemberRelationshipSpecialtyStart DateEnd Date Giuliano Castelan MD [address] [place] [address] PCP - GeneralFamily Medicine07/02/17
--- OUTSIDE RECORDS SUMMARY | 2025-11-21 16:53 | XMS_ITS | Clinical Summary ---
Author Organization [facility] Address [address] [place] [address] Phone Care Team Providers Care Supervisor Wood Crew Name Role Phone Naheed Thompson DO Primary Care Provider [phone] Julito Silva DO Unavailable [phone] Allergies Active AllergyReactionsCriticalityNoted DateCommentsMoxifloxacinAnaphylaxisHigh 10/01/2023 Medications MedicationSigDispense QuantityRefillsLast FilledStart DateEnd DateStatus colestipol (Colestid) 1 gram tablet Take 3 tablets (3 g) by mouth once daily.06/24/2023ctive gabapentin (Neurontin) 600 mg tablet Take 1 tablet (600 mg) by mouth 3 times a day.05/08/2023ctive MAGNESIUM OXIDE ORAL Take 250 mg by mouth once daily.10/25/2021ctive omeprazole (PriLOSEC) [address] capsule Take 1 capsule (20 mg) by mouth 2 times a day.12/05/2021ctive rOPINIRole (Requip) 1 mg tablet Take 1 tablet (1 mg) by mouth once daily at bedtime.10/25/2021ctive Spiriva Respimat 2.5 mcg/actuation inhaler Inhale once daily.Active traZODone (Desyrel) 100 mg tablet Take 1 tablet (100 mg) by mouth once daily at bedtime.07/02/2023ctive zolpidem (Ambien) 10 mg tablet Take 1 tablet (10 mg) by mouth as needed at bedtime.08/11/2023ctive aspirin 81 mg EC tablet Take 1 tablet (81 mg) by mouth once daily.Active ferrous sulfate (iron) 325 (65 Fe) MG tablet Take 1 tablet (325 mg) by mouth once daily with breakfast.Active montelukast (Singulair) 10 mg tablet Take 1 tablet (10 mg) by mouth once daily at bedtime.Active fexofenadine (Keke) 180 mg tablet Take 1 tablet (180 mg) by mouth once daily.Active nitroglycerin (Nitrostat) 0.4 mg SL tablet Indications:Chest pain, unspecified typePlace 1 tablet (0.4 mg) under the tongue every 5 minutes if needed for chest pain. May repeat dose every 5 minutes for up to 3 doses total. 100 tablet ctive metoprolol succinate XL (Toprol-XL) 100 mg 24 hr tablet Indications:Paroxysmal atrial fibrillation (Multi)TAKE 1 TABLET BY MOUTH ONCE DAILY 90 tablet ctive atorvastatin (Lipitor) 20 mg tablet Indications:Elevated coronary artery calcium scoreTake 1 tablet (20 mg) by mouth once daily. 90 tablet ctive Active Problems ProblemNoted DateDiagnosed DateBMI 20.0-20.9, adult10/07/2024Hx of non-ST elevation myocardial infarction (NSTEMI)10/07/20244188Lyefar50/09/2023Elevated coronary artery calcium score10/02/20238766Fbcvbi77/09/2023bnormal stress test 10/02/2023bnormal EKG112/01/2022hest pain10/01/2023OPD (chronic obstructive pulmonary disease)10/01/2023iabetes xolrixqs27/08/2023History of sepsis 10/01/2023Legionnaires' lccuiww0110/01/20231499Muqlunukczw29/08/2023aroxysmal atrial hdeufacxgogt39/08/1600Eeitcdofq49/08/2023 Immunizations ImmunizationAdministration DatesNext DueInfluenza, seasonal, injectable 08/21/2022fizer Purple Cap EZSR-VxU-119/29/2022,02/15/2021,01/25/2021 Pneumococcal conjugate vaccine, 13-valent (PREVNAR 13)11/04/2022 Family History Medical HistoryRelationNameCommentsDiabetesBrotherdiabetes mellitusMotherLung cancerSisterPancreatic cancerSisterRelationNameStatusCommentsBrotherMotherSister Social History Tobacco UseTypesPacks/DayYears UsedDateSmoking Tobacco: Some DaysCigarettes Smokeless Tobacco: Never Tobacco Cessation:Ready to Q uit: Not Asked; Counseling Given: Yes Alcohol UseStandard Drinks/WeekCommentsNever0 (1 standard drink = 0.6 oz pure alcohol)CommentsUnknownSex and Gender InformationValueDate RecordedSex Assigned at BirthNot on fileLegal OhpGlmdhj36/25/2022 10:44 AM ESTGender IdentityNot on fileSexual OrientationNot on file Last Filed Vital Signs Vital SignReadingTime TakenCommentsBlood Pwhjnzqc572/5611 1:49 PM EST Wqknc405010/07/2024 1:49 PM ESTTemperature--Respiratory Rate--Oxygen Saturation-- Inhaled Oxygen Concentration--Uanshj37.3 kg (113 lb)10/07/2024 1:49 PM ESTHeight 157.5 cm (5' 2 )10/07/2024 1:49 PM ESTBody Mass Index20.6710/07/2024 1:49 PM EST Plan of Treatment Health MaintenanceDue DateLast DoneCommentsCT Ewkljdnexuzy1952Diabetes: Hemoglobin A1C2Diabetes: Urine Protein Nzskyagvy1952FIT-DNA (Cologuard)1952FIT1952Lipid Panel1952Medicare Annual Wellness Visit (AWV)1952MMR Vaccines (1 of 1 - Standard series)3Diabetes: Retinopathy Pqcolehfc52/12/1962Hepatitis A Vaccines (1 of 2 - Risk 2-dose series)1971DTaP/Tdap/Td Vaccines (1 - Tdap)04/04/19743647Cpkzqirww71/12/1992 Hepatitis B Vaccines (1 of 3 - Risk 3-dose series)2012one Density Scan 2017Pneumococcal Vaccine (2 of 2 - PPSV23, PCV20, or PCV21)12/30/2022 11/04/2022, 11/04/2022, 09/08/2017Zoster Vaccines (2 of 2)/03/2023 COVID-19 Vaccine ( season), 08/28/2023, 08/22/2022, Additional history existsInfluenza Vaccine (#1), 08/28/2023, 08/26/2022, Additional history uwjzkdPrxfnsbdujmmr51/26/2028 05/19/20237412Temofjsjwya36, 06/17/2018Colorectal Cancer Screening 05/19/2033Irritable Bowel BanufpaiPkikbliywcgp13/26/2023RSV High Risk: (Elderly (60+) or Population)Hwvdspdow84/05/2023HIB VaccinesAged OutNo longer eligible based on patient's age to complete this topicHPV VaccinesAged OutNo longer eligible based on patient's age to complete this topicIPV VaccinesAged OutNo longer eligible based on patient's age to complete this topicMeningococcal VaccineAged OutNo longer eligible based on patient's age to complete this topic Rotavirus VaccinesAged OutNo longer eligible based on patient's age to complete this topic Insurance Care Teams Team MemberRelationshipSpecialtyStart DateEnd Naheed Thompson DO [address] [facility] [address] [place] [address] PCP - GeneralFamily Tkebiaxv74/14/24 Julito Silva DO NPI: [id number] [place] [address] 2, [facility] [address] [place] [address] Consulting PvnzewvoaMoywndxfmn48/14/24
--- OUTSIDE RECORDS SUMMARY | 2025-11-21 16:53 | XMS_ITS | Clinical Summary ---
Author Organization [facility] Address [address] [place] [address] Care Team Providers Care Sr. Unix System Administrator Name Role Phone Naheed Thompson DO Primary Care Provider [phone] Allergies Active AllergyReactionsCriticalityNoted DateCommentsMoxifloxacinAnaphylaxisHigh 11/25/2017 Other Reaction(s): Unknown Medications MedicationSigDispense QuantityRefillsLast FilledStart DateEnd DateStatus albuterol (2.5 MG/3ML) 0.083% nebulizer solution Inhale 2.5 mgActive budesonide EC (Entocort EC) 3 MG 24 hr capsule Take 9 mg by mouth Daily05/21/2023ctive escitalopram (Lexapro) 20 MG tablet 1 (one) time each day at the same timeActive SM Slow Release Iron 45 MG tablet controlled-release 08/31/2022ctive gabapentin (Neurontin) 300 MG capsule Take 300 mg by mouth in the morning and 300 mg in the evening.Active Mucus Relief 600 MG 12 hr tablet Take 1,200 mg by mouth in the morning and 1,200 mg before bedtime.02/28/2023 Active nitroglycerin (Nitrostat) 0.4 MG SL tablet Active omeprazole (PriLOSEC) [address] capsule 09/19/2022ctive tiotropium (Spiriva HandiHaler) 18 MCG inhalation capsule 1 capsule 1 (one) time each day at the same timeActive traZODone (Desyrel) 100 MG tablet 07/02/2023ctive zolpidem (Ambien) 10 MG tablet Take 10 mg by mouth Daily as neededActive montelukast (Singulair) 10 MG tablet Indications:DermatographismTake 1 tablet (10 mg) by mouth at bedtime. 30 tablet ctive aspirin 81 MG EC tablet Take 81 mg by mouth DailyActive Albuterol-Budesonide 90-80 MCG/ACT aerosol Four times daily as needed for shortness of oovlko5008/09/2025tive busPIRone (Buspar) 10 MG tablet Three times daily5Active Trelegy Ellipta 100-62.5-25 MCG/ACT aerosol powder Inhale 1 puff Daily5Active primidone (Mysoline) 50 MG tablet TAKE 1/2 (ONE-HALF) OF A TABLET BY MOUTH DAILY AT BEDTIMEActive Active Problems ProblemNoted DateDiagnosed DateOther partial intestinal domjobyxyjt41/08/2025 History of radiation reryftse27/08/2025 Encounters DateTypeDepartmentCare FbcxIjliajwrqmy82/31/2025 10:30 AM EDTOffice Visit [facility] [address] [place] [address] [address] [place] [address] Nakul Marin MD Other partial intestinal obstruction (HCC) (Primary Dx); History of radiation klacbeoy08/31/3817Awkclk24/14/7143Mgleeo81/08/2025 9:00 AM EDTOffice Visit [facility] [address] [facility] [address] [place] [address] Nakul Marin MD Other partial intestinal obstruction (HCC) (Primary Dx); History of radiation qwdojdom44/08/7698Pqcbll29/03/2609Qrlpph58/29/2025Travel from Last 3 Months Family History Medical HistoryRelationNameCommentsCervical cancerMotherGoutSiblingMelanomaNeg HxRelationNameStatusCommentsFatherDeceasedMotherDeceasedSibling2 brothers, 5 sisters Social History Tobacco UseTypesPacks/DayYears UsedDateSmoking Tobacco: Every DayCigarettesLast attempted to quit: 11/24/1994Smokeless Tobacco: Never Tobacco Cessation:Ready to Q uit: Not Asked; Counseling Given: Not Answered Comments:Light cigarette smoker (1-9/day) Alcohol UseStandard Drinks/WeekCommentsYes2 (1 standard drink = 0.6 oz pure alcohol)Caffeine: 1-2 cups/dayCommentsUnknownSex and Gender Information ValueDate RecordedSex Assigned at BirthNot on fileLegal JblAxukuv22/15/2023 6:54 PM EDTGender IdentityNot on fileSexual OrientationNot on file Last Filed Vital Signs Vital SignReadingTime TakenCommentsBlood Tmlppmpr574/6408/31/2025 9:04 AM EDT Pulse--Temperature--Respiratory Rate--Oxygen Saturation--Inhaled Oxygen Concentration--Qgcxrw82.7 kg (114 lb)08/31/2025 9:04 AM KCDZaaeur309.9 cm (5' 1 )08/31/2025 9:04 AM EDTBody Mass Index21.5408/31/2025 9:04 AM EDT Plan of Treatment DateTypeDepartmentCare Team (Latest Contact Info)Ayrlepvgqyu26/05/2026 1:05 PM ESTOffice Visit [facility] [address] [place] [phone] Zora Echols MD [address] [place] [address] Health MaintenanceDue DateLast DoneCommentsCT Xzxntwwrkpye1952FIT-DNA 1950FIT1952FOBT1952Wwhpteswdmnzi50/12/1965Ihfjeacdl39/07/2018 02/28/20174787Trdybnzdmko50, 05/19/2023, 06/17/2018Colorectal Cancer Ggtzlfecs13/26/2033Pneumococcal Vaccine: 65+ MzvqcLijnoezqt54/12/2022, 11/04/2022, 09/08/2017, Additional history existsInfluenza VaccineCompleted 09/16/2025, 09/03/2024, 08/28/2023, Additional history exists Procedures Procedure NamePriorityDate/TimeAssociated DiagnosisCommentsCOLONOSCOPYRoutine 06/17/2018 12:00 PM EDT from Last 3 Months or Most Recently Relevant to Health Maintenance Results * Colonoscopy (06/17/2018 12:00 PM EDT)Anatomical RegionLateralityModality EndoscopySpecimen (Source)Anatomical Location / LateralityCollection Method / VolumeCollection TimeReceived Time06/17/2018 12:00 PM EDT Narrative 06/17/2018 12:00 PM EDT PERFORMED AT [facility] LOCATION:[id number] polyp x1 Procedure Note CONVERSION, GENERIC - 04/09/2023 PERFORMED AT [facility] LOCATION:[id number] polyp x1 Authorizing ProviderResult TypeResult StatusGiuliano Castelan MDENDOSCOPY PROCEDURE ORDERABLESFinal Result from Last 3 Months or Most Recently Relevant to Health Maintenance Insurance Care Teams Team MemberRelationshipSpecialtyStart DateEnd Date Naheed Thompson DO [address] [facility] [place] [address] PCP - GeneralFamily Xvwmxwvf68/23/23
[2025-11-21] MEDS: ACETAMINOPHEN 325 MG TABLET 650 MG PO (17:04)
[2025-11-21] MEDS: TRAMADOL HCL 50 MG TABLET PO (17:05)
[2025-11-21] MEDS: LIDOCAINE 5% PATCH 1 PATCH TOPICAL (17:51)
[2025-11-21 17:53] VITALS: BP 96/50; PULSE 64; O2SAT 96
== END 2025-11-21 17:57 | disposition home or self-care (01) ==
PROVIDERS: Emergency Provider Emergency Medicine; Family Provider Otolaryngology
DX: S22.32XA Fracture of one rib, left side, initial encounter for closed fracture (principal); R05.1 Acute cough; X58.XXXA Exposure to other specified factors, initial encounter
CPT/HCPCS: 71101; 94667; 99283